=== PATIENT | male | born 1980 | race Caucasian/White ===

== ENCOUNTER 2022-09-12 06:15 | Observation (INO) | payer BC, SELFPAY ==
--- NOTE | ~2022-09-12 | FL_ITS ---
EXAMINATION: XR FLUOROSCOPY WITH IMAGES CLINICAL INFORMATION: Right ureteral calculus COMPARISON: CT dated 09/12/2022 TECHNIQUE: Fluoroscopy Supervised By: Dr. Dominick Wills. Fluoroscopy Time: 22.1 seconds. Cumulative Dose: 5.29 mGy. Images: 3. FL/FL guidance in OR FINDINGS/IMPRESSION: Images demonstrate placement of a right ureteral stent. Please see operative report.
--- NOTE | ~2022-09-12 | CT_ITS ---
EXAMINATION: CT ABDOMEN AND PELVIS WITHOUT CONTRAST CLINICAL INFORMATION: RLQ Pain COMPARISON: None TECHNIQUE: Multidetector volumetric imaging was performed from the superior aspect of the liver through the pubic symphysis. Sagittal and coronal reformatted images were obtained on the technologist's workstation. This CT examination was performed using dose optimization techniques as appropriate, variously including the following: *Automated exposure control *Adjustment of mA and/or kV according to patient size (this includes techniques or standardized protocols for targeted exams where dose is matched to indication/reason for exam; i.e. extremities or head) *Use of iterative reconstruction technique DLP: 410 mGy-cm FINDINGS: LUNG BASES: The visualized lung bases are unremarkable. LIVER, GALLBLADDER, AND BILIARY TREE: The liver is normal in size, shape, and attenuation. No focal hepatic lesion or biliary ductal dilatation is present. The gallbladder is unremarkable with no evidence of radiopaque gallstones, gallbladder wall thickening, or obvious pericholecystic inflammatory changes. PANCREAS: Unremarkable. SPLEEN: Unremarkable. ADRENAL GLANDS: Unremarkable. KIDNEYS AND URETERS: The kidneys are normal in size, shape, and attenuation. Within the right proximal ureter at the level of the superior endplate of L4, there is a calculus measuring 3 x 2 x 5 mm which produces moderate right hydronephrosis there is surrounding periureteral fat stranding. No additional renal or ureteral calculi. This calculus has an attenuation value of 875 Hounsfield units, though this is likely falsely depressed due to volume averaging. BLADDER: Unremarkable. GASTROINTESTINAL TRACT: Stomach, small bowel, and colon are normal in caliber. No bowel wall thickening or surrounding inflammatory changes. Appendix is normal. No intraperitoneal free fluid or free air. ABDOMINAL WALL: No significant hernia is appreciated. LYMPH NODES: Normal. VASCULAR: Celiac axis appears dilated to 1.4 cm, potentially due to poststenotic dilatation from the navicular ligament compression. This region is not well assessed given the absence of intravenous contrast. Abdominal aorta is normal in caliber. PELVIC VISCERA: The prostate and seminal vesicles are unremarkable. OSSEOUS STRUCTURES: No acute osseous findings. Chronic Schmorl's nodes are evident at T10, T11, and T12 with slight chronic-appearing anterior wedging of the T10 and T12 vertebral bodies. CT/CT abdomen pelvis wo IV con IMPRESSION: A 5 mm calculus in the right proximal ureter produces moderate right hydronephrosis. Fleischner guidelines were followed.
[2022-09-12 06:29] VITALS: BP 141/62; PULSE 73; RESP 40; TEMP 36.4; O2SAT 100; BMI 22.2
[2022-09-12 06:43] LABS: MANUAL DIFF FLAG NO
[2022-09-12 06:44] LABS: Basophils Percent Auto 0.4 % (0-2); Eosinophils Absolute Auto 0.1 X10*3/uL (0.0-0.4); Eosinophils Percent Auto 1.2 % (0-4); Hematocrit 41.9 % (42.0-52.0); Imm Gran Abs Auto 0.02 X10*3/uL (0.00-0.03); Imm Gran Pct Auto 0.4 % (0.0-0.4); Lymphocytes Absolute Auto 2.4 X10*3/uL (1.2-4.9); Lymphocytes Percent Auto 41.8 % (20-40); Mean Corpuscular HGB Conc 35.8 g/dl (31.0-36.0); Mean Corpuscular Hemoglobin 31.8 pg (27.0-33.0); Mean Platelet Volume 9.1 fL (9.4-12.4); Monocytes Absolute Auto 0.5 X10*3/uL (0.1-1.2); Neutrophils Absolute Auto 2.7 x10*3/uL (2.0-8.3); Neutrophils Percent Auto 48.2 % (45-73); Platelet Count 196 X10*3/uL (160-400); Red Blood Count 4.71 X10*6/uL (4.60-5.80); White Blood Count 5.6 X10*3/uL (4.8-10.8)
[2022-09-12] MEDS: Ketorolac Tromethamine 30 MG/ML VIAL 15 MG IVPUSH (06:50)
[2022-09-12] MEDS: 0.9 % Sodium Chloride 1,000 ML 999 ML IV ×2 (06:52→07:43)
[2022-09-12 06:59] LABS: Alanine Aminotransferase 24 U/L (0-40); Albumin Level 4.4 g/dL (3.5-5.0); Alkaline Phosphatase 88 U/L (39-117); Anion Gap 20 (12-20); Aspartate Amino Transferase 21 U/L (5-37); Bilirubin Total 0.8 mg/dL (0.0-1.0); Blood Urea Nitrogen 14 mg/dL (9-16); Calcium 9.5 mg/dL (8.4-10.2); Carbon Dioxide 18 mmol/L (22-29); Chloride 105 mmol/L (96-108); Creatinine Clr Calc Pharmacy 86.9; Estimated Glomerular Filt Rate > 60; Glucose Random 148 mg/dL (60-115); Lipase 15 U/L (8-78); Potassium 3.5 mmol/L (3.3-5.1); Sodium 139 mmol/L (135-145)
[2022-09-12 07:20] LABS: Appearance Urine Turbid; Color Urine Yellow; Glucose Urine UA Negative (Negative); Leukocyte Esterase Urine Trace (Negative); Nitrite Urine Negative (Negative); PH 8.5 (5.0-9.0); Specific Gravity - Urine 1.025 (1.005-1.025); UMIC TRIGGER UACC YES; Urine Blood Large (3+) (Negative); Urine Ketones 15 mg/dL (Negative); Urine Protein 30 (1+) mg/dL (Neg-Trace)
--- NOTE | 2022-09-12 07:23 | ED_ITS ---
HPI - Abdominal Pain General Chief Complaint: Abdominal Pain Stated Complaint: Abdominal Pain Time Seen by Provider: 09/12/22 06:40 Source: patient and family Mode of arrival: ambulatory Limitations: no limitations History of Present Illness HPI narrative: 42 year old male presents to the ED after waking up from sleep with RLQ pain and flank pain. He denies dysuria or frequency. He states he did not urinate his n ormal amount. He denies fever chills cough has some nausea with no vomiting. He his appendix has never had a kidney stone. MD elicited complaint: flank pain Related Data Allergies Allergy/AdvReac Type Severity Reaction Status Date / Time No Known Allergies Allergy Verified 09/12/22 06:28 Review of Systems Review of Systems Review of systems: General: Patient denies any fever chills recent illness or falls Musculoskeletal: Denies back pain or body aches or other injuries HEENT: denies headache, runny nose, ear pain Respiratory: denies shortness of breath, cough Cardiovascular: no chest pain or palpitations : denies dysuria, frequency Abdomen: no nausea vomiting rlq abdominal pain Extremities: no swelling, no pain Skin: no diaphoresis Yes all other systems are reviewed and are negative PMFSH Social History Social History Advance Directives: No Advance Directives Information Provided: Yes Physical Exam ED Vital Signs: Vital Signs - 24 hr 09/12/22 06:29 09/12/22 07:29 Temperature 97.5 F Pulse Rate 73 Respiratory Rate 40 H 16 Blood Pressure 141/62 H Pulse Oximetry 100 Oxygen Delivery Method Room Air BMI result Body Mass Index 22.2 General: Well-appearing well-nourished in no signs of distress HEENT: Normocephalic atraumatic Neck: No signs of JVD, no masses no tenderness or lymphadenopathy Cardiovascular: Regular rate and rhythm Respiratory: Clear to auscultation bilaterally Abdomen: Soft RLQ tenderness no masses no CVA tenderness Extremities: Normal pedal pulses no signs of edema Skin: Dry warm no rashes Back: No tenderness full ROM Medical Decision Making Medical Decision Making MDM Narrative: Patient sent for CT which shows a 5 mm kidney stone which patient her head or labs otherwise look normal patient has been unable to give us urine sample this point patient is still in severe pain states he has 710 pain still give patient some morphine and reassess. 0741 Patient does have 20 + RBC with 10-20 WBC's on his urinalysis concern for UTI. I will consult Dr. Wills about admission and review of note. Differential Diagnosis Differential Diagnoses: The differential diagnosis associated with the presentation includes Appendicitis versus kidney stone versus diverticulitis Admission/Observation Consideration of admission/observation: Escalation of care including admission/observation considered Consult Healthcare Provider Management of the patient was discussed with: Hospitalist and Motorcycle Subassembler Dr. Wills about concern for infected kidney stone vs response to blood in urine he agrees it is an infected kidney stone and recommends admission IV antibiotics will watch today for possible procedure tomorrow. I spoke with Dr. Glass who agreed with the admission. Lab Data MDM Lab Attestation statement: I reviewed the patient's lab results. 09/12/22 06:39 09/12/22 06:39 Labs: Lab Results 09/12/22 09/12/22 09/12/22 Range/Units 06:39 06:39 07:09 WBC 5.6 (4.8-10.8) X10*3/uL RBC 4.71 (4.60-5.80) X10*6/uL Hgb 15.0 (14.0-18.0) g/dl Hct 41.9 L (42.0-52.0) % MCV 89.0 (80.0-98.0) fL MCH 31.8 (27.0-33.0) pg MCHC 35.8 (31.0-36.0) g/dl RDW 11.0 (11.0-16.0) % Plt Count 196 (160-400) X10*3/uL MPV 9.1 L (9.4-12.4) fL Immature Gran % (Auto) 0.4 (0.0-0.4) % Neut % (Auto) 48.2 (45-73) % Lymph % (Auto) 41.8 H (20-40) % [place] % (Auto) 8.0 (2-11) % Eos % (Auto) 1.2 (0-4) % Baso % (Auto) 0.4 (0-2) % Lymph # (Auto) 2.4 (1.2-4.9) X10*3/uL [place] # (Auto) 0.5 (0.1-1.2) X10*3/uL Eos # (Auto) 0.1 (0.0-0.4) X10*3/uL Baso # (Auto) 0.0 (0.0-0.2) X10*3/uL Abs Immat Gran (auto) 0.02 (0.00-0.03) X10*3/uL Absolute Neuts (auto) 2.7 (2.0-8.3) x10*3/uL Absolute Nucleated RBC 0.000 (0.0-0.012) X10*3/uL Nucleated RBC % (auto) 0.0 (0.0-0.2) /100WBC Sodium 139 (135-145) mmol/L Potassium 3.5 (3.3-5.1) mmol/L Chloride 105 (96-108) mmol/L Carbon Dioxide 18 L (22-29) mmol/L Anion Gap 20 (12-20) BUN 14 (9-16) mg/dL Creatinine 1.10 (0.5-1.4) mg/dL Estim Creat Clear Calc 86.9 Estimated GFR > 60 Random Glucose 148 H (60-115) mg/dL Calcium 9.5 (8.4-10.2) mg/dL Total Bilirubin 0.8 (0.0-1.0) mg/dL AST 21 (5-37) U/L ALT 24 (0-40) U/L Alkaline Phosphatase 88 (39-117) U/L Total Protein 7.0 (6.5-8.0) g/dL Albumin 4.4 (3.5-5.0) g/dL Lipase 15 (8-78) U/L Urine Color Yellow Urine Appearance Turbid Urine pH 8.5 (5.0-9.0) Ur Specific [place] 1.025 (1.005-1.025) Urine Protein 30 (1+) H (Neg-Trace) mg/dL Urine Glucose (UA) Negative (Negative) mg/dL Urine Ketones 15 (Negative) mg/dL Urine Blood Large (3+) H (Negative) Urine Nitrite Negative (Negative) Ur Leukocyte Esterase Trace H (Negative) Urine RBC >20 H (0-2) /HPF Urine WBC 11-20 H (0-5) /HPF Ur Squamous Epith Cells 0-2 (0-2) /HPF Urine Bacteria None Seen (None Seen) Hyaline Casts 3-5 (0-2) /LPF Independent Interpretation I performed an independent interpretation of an: CT Scan Radiology Impression Discussion of test interpretation with radiology: I have reviewed the radiologist's reading. Independent Historian Clinical information obtained from an independent historian. History obtained from or confirmed by: Parent External Record Review External record reviewed: Inpatient record and Outpatient record Prescription Management I considered prescription management with: Pain Medication Medications Administered Generic Name Dose Route Start Last Admin Trade Name Freq PRN Reason Stop Dose Admin Sodium Chloride 1,000 mls @ 999 mls/hr 09/12/22 07:30 09/12/22 07:43 Ns IV 09/12/22 08:30 999 mls/hr .Q1H1M TIANA Administration Discontinued Medications Generic Name Dose Route Start Last Admin Trade Name Freq PRN Reason Stop Dose Admin Diphenhydramine HCl 25 mg 09/12/22 07:22 09/12/22 07:29 Diphenhydramine Hcl 50 Mg/Ml Vial IVPUSH 09/12/22 07:23 25 mg ONCE ONE Administration Sodium Chloride 1,000 mls @ 999 mls/hr 09/12/22 06:30 09/12/22 06:52 Ns IV 09/12/22 07:30 999 mls/hr .Q1H1M TIANA Administration Ketorolac Tromethamine 15 mg 09/12/22 06:30 09/12/22 06:50 Ketorolac Tromethamine 30 Mg/Ml Vial IVPUSH 09/12/22 06:31 15 mg ONCE ONE Administration Metoclopramide HCl 10 mg 09/12/22 07:22 09/12/22 07:29 Metoclopramide Hcl 10 Mg/2 Ml Vial IVPUSH 09/12/22 07:23 10 mg ONCE ONE Administration Morphine Sulfate 4 mg 09/12/22 07:22 09/12/22 07:29 Morphine Sulfate 4 Mg/Ml Cartridge IVPUSH 09/12/22 07:23 4 mg ONCE ONE Administration Protocol Discharge Plan Discharge Clinical Impression: Calculus of kidney, Urinary tract infection Patient Disposition: Admitted As Inpatient Instructions: Kidney Stones (ED), Hydronephrosis (ED) Referrals: Dominick Wills MD [Physician] - (Please call to follow up for your kidney stone. If you have any other concerns please return to the ED.)
[2022-09-12 07:25] LABS: Bacteria Urine None Seen (None Seen); RBC Urine >20 /HPF (0-2); Squamous Epithelial Cell Urine 0-2 /HPF (0-2); UACC Culture Trigger YES
[2022-09-12 07:29] VITALS: RESP 16
[2022-09-12] MEDS: diphenhydrAMINE HCL 50 MG/ML VIAL 25 MG IVPUSH (07:29)
[2022-09-12] MEDS: Morphine Sulfate 4 MG/ML CARTRIDGE IVPUSH (07:29)
[2022-09-12] MEDS: Metoclopramide HCl 10 MG/2 ML VIAL IVPUSH (07:29)
[2022-09-12] MEDS: cefTRIAXone sodium 1 GM in 0.9 % Sodium Chloride 50 ML IV (07:50)
[2022-09-12] MEDS: Ketorolac Tromethamine 15 MG/ML VIAL IVPUSH (07:57)
[2022-09-12 08:27] LABS: COVID-19 Test Negative (Negative); IDNOW Serial# 16C4AD1C
--- NOTE | 2022-09-12 09:01 | P.HPHOSP_ITS ---
History of Present Illness Date of Service: 09/12/22 Chief Complaint: right flank pain 42M PMH migraines and epilepsy presented with right flank pain. pain started am of admission around 5am, 10/10 right flank, radiating to RLQ abdomen, no previous stones, father has had mutliplr calcium oxalate stones. in ED ct showed A 5 mm calculus in the right proximal ureter produces moderate right hydronephrosis. Review of Systems Review of Systems: Yes all other systems are reviewed and are negative [facility] Medical History (Updated 09/12/22 @ 09:02 by Bjorn Glass MD) Epilepsy Migraine Family History (Updated 09/12/22 @ 09:03 by Bjorn Glass MD) Father Nephrolithiasis Social History Alcohol intake: never Smoked in Last 30 Days: No Use of substances other than those prescribed or required for medical reasons: No Advance Directives: No Advance Directives Information Provided: Yes Meds Allergies Allergy/AdvReac Type Severity Reaction Status Date / Time No Known Allergies Allergy Verified 09/12/22 06:28 Active Medications: Current Medications Hydromorphone HCl (Hydromorphone Hcl 0.5 Mg/0.5 Ml Syringe) 0.5 mg IVPUSH Q4H PRN; Protocol PRN Reason: moderate pain Sodium Chloride (Ns) 1,000 mls @ 100 mls/hr IVCONT .Q10H [facility] Lamotrigine (Lamotrigine 100 Mg Tablet) 200 mg PO BID [facility] Pharmacy Consult (Consult Rx Perform Med Rec) 1 each MISCELLANE ONCE PRN PRN Reason: Consult order Sodium Chloride (0.9 % Sodium Chloride Flush 3 Ml Syringe) 3 ml IVFLUSH QSHIFT [facility] Tamsulosin HCl (Tamsulosin Hcl 0.4 Mg Capsule) 0.4 mg PO DAILY [facility] Home Medications Medication Instructions Recorded Confirmed Last Taken Type lamotrigine 200 mg tablet 1 tab PO BID 09/12/22 09/12/22 Unknown History Physical Exam Vital Signs and Narrative: Vital Signs: Last Vital Signs Temp 97.5 F 09/12/22 06:29 Pulse 73 09/12/22 06:29 Resp 16 09/12/22 07:29 BP 141/62 H 09/12/22 06:29 Pulse Ox 100 09/12/22 06:29 O2 Del Method 09/12/22 06:29 BMI result Body Mass Index 22.2 General: AO X 3, no acute distress Resp: CTA bilateral, no accessory muscles used CVS: S1,S2,RRR GI: soft, non tender, non distended Neuro: motor grossly intact, alert Psych: appropriate affect, appropriate insight Results Labs 09/12/22 06:39 09/12/22 06:39 Labs: Laboratory Results - last 24 hr 09/12/22 09/12/22 09/12/22 06:39 06:39 07:09 MCV 89.0 MCH 31.8 MCHC 35.8 RDW 11.0 Plt Count 196 MPV 9.1 L Immature Gran % (Auto) 0.4 Neut % (Auto) 48.2 Lymph % (Auto) 41.8 H [place] % (Auto) 8.0 Eos % (Auto) 1.2 Baso % (Auto) 0.4 Lymph # (Auto) 2.4 [place] # (Auto) 0.5 Eos # (Auto) 0.1 Baso # (Auto) 0.0 Abs Immat Gran (auto) 0.02 Absolute Neuts (auto) 2.7 Absolute Nucleated RBC 0.000 Nucleated RBC % (auto) 0.0 Anion Gap 20 Estim Creat Clear Calc 86.9 Estimated GFR > 60 Random Glucose 148 H Calcium 9.5 Total Bilirubin 0.8 AST 21 ALT 24 Alkaline Phosphatase 88 Total Protein 7.0 Albumin 4.4 Lipase 15 Urine Color Yellow Urine Appearance Turbid Urine pH 8.5 Ur Specific [place] 1.025 Urine Protein 30 (1+) H Urine Glucose (UA) Negative Urine Ketones 15 Urine Blood Large (3+) H Urine Nitrite Negative Ur Leukocyte Esterase Trace H Urine RBC >20 H Urine WBC 11-20 H Ur Squamous Epith Cells 0-2 Urine Bacteria None Seen Hyaline Casts 3-5 COVID-19 (TERY) COVID-19 Clin Com 09/12/22 08:09 MCV MCH MCHC RDW Plt Count MPV Immature Gran % (Auto) Neut % (Auto) Lymph % (Auto) [place] % (Auto) Eos % (Auto) Baso % (Auto) Lymph # (Auto) [place] # (Auto) Eos # (Auto) Baso # (Auto) Abs Immat Gran (auto) Absolute Neuts (auto) Absolute Nucleated RBC Nucleated RBC % (auto) Anion Gap Estim Creat Clear Calc Estimated GFR Random Glucose Calcium Total Bilirubin AST ALT Alkaline Phosphatase Total Protein Albumin Lipase Urine Color Urine Appearance Urine pH Ur Specific [place] Urine Protein Urine Glucose (UA) Urine Ketones Urine Blood Urine Nitrite Ur Leukocyte Esterase Urine RBC Urine WBC Ur Squamous Epith Cells Urine Bacteria Hyaline Casts COVID-19 (TREY) Negative COVID-19 Clin Com See Note Imaging Radiologist's Impressions: Impressions Abdomen/Pelvis CT 09/12/22 06:50 IMPRESSION: A 5 mm calculus in the right proximal ureter produces moderate right hydronephrosis. Fleischner guidelines were followed. Assessment and Plan (1) Calculus of kidney: Status: Acute Plan 42M PMH migraine and epilepsy presented with right flank pain, found to have obstructing right ureteral stone obstructing right ureteral stone ivf, pain control, flomax, gu eval npo after midnight for possible intervention epilepsy lamictal full code Time Spent With Patient Time: Total time managing care of this patient today ____ minutes. Quality Stroke Does the patient have a stroke diagnosis?: No VTE Prior VTE?: No VTE Risk Level:: Medical - low VTE Device Contraindication: Treatment Not Indicated VTE Drug Contraindication: Treatment Not Indicated
--- NOTE | 2022-09-12 09:12 | PHA.MEDREC ---
Pharmacy Consult ? Medication Reconciliation Pharmacy has completed the medication reconciliation. CHECKED MED REC DONE OVERNIGHT
[2022-09-12] MEDS: Tamsulosin HCL 0.4 MG CAPSULE PO (09:51)
[2022-09-12] MEDS: lamoTRIgine 100 MG TABLET 200 MG PO ×2 (09:52→21:44)
[2022-09-12 10:00] VITALS: BMI 28.5
[2022-09-12] MEDS: 0.9 % Sodium Chloride 1,000 ML 100 ML IVCONT ×2 (10:03→20:20)
[2022-09-12 10:42] VITALS: RESP 16
[2022-09-12] MEDS: HYDROmorphone HCl 0.5 MG/0.5 ML SYRINGE IVPUSH ×3 (10:42→23:52)
[2022-09-12 14:13] VITALS: BP 126/80; PULSE 65; RESP 20; TEMP 36.6; O2SAT 99
[2022-09-12] MEDS: ondansetron HCL 4 MG/2 ML VIAL IVPUSH (20:21)
[2022-09-12 22:35] VITALS: BP 116/71; PULSE 66; RESP 19; TEMP 36.9; O2SAT 98
[2022-09-12 23:27] VITALS: BP 123/71; PULSE 70; RESP 17; O2SAT 96
--- NOTE | 2022-09-12 23:55 | PC.NURSE ---
Pt aox4. Reports righ flank pain, 02/14. Pt medicated as ordered. Tolerated well. Will continue to monitor.
[2022-09-13] VITALS (12 sets, daily range): BP systolic 113–140; BP diastolic 63–77; PULSE 66–81; RESP 16–19; TEMP 36.6–37.6; O2SAT 96–100; BMI 22.9
[2022-09-13 02:54] LABS: Hematocrit 37.2 % (42.0-52.0); Hemoglobin 13.2 g/dl (14.0-18.0); Mean Corpuscular HGB Conc 35.5 g/dl (31.0-36.0); Mean Corpuscular Volume 90.3 fL (80.0-98.0); Mean Platelet Volume 9.1 fL (9.4-12.4); Platelet Count 139 X10*3/uL (160-400); Red Blood Count 4.12 X10*6/uL (4.60-5.80); White Blood Count 8.6 X10*3/uL (4.8-10.8)
--- NOTE | 2022-09-13 04:01 | PC.NURSE ---
Pt sleeping at the bedside in no apparent distress. Breaths are even and unlabored with equal chest rises. Will continue to monitor.
[2022-09-13 05:05] LABS: Anion Gap 13 (12-20); Blood Urea Nitrogen 12 mg/dL (9-16); Calcium 8.3 mg/dL (8.4-10.2); Carbon Dioxide 23 mmol/L (22-29); Chloride 105 mmol/L (96-108); Creatinine Clr Calc Pharmacy 77.8; Estimated Glomerular Filt Rate > 60; Glucose Fasting 104 mg/dL (60-99); Potassium 3.9 mmol/L (3.3-5.1); Sodium 137 mmol/L (135-145)
[2022-09-13] MEDS: 0.9 % Sodium Chloride 1,000 ML 100 ML IVCONT ×2 (05:14→18:12)
[2022-09-13] MEDS: HYDROmorphone HCl 0.5 MG/0.5 ML SYRINGE IVPUSH ×3 (06:02→18:10)
[2022-09-13] MEDS: lamoTRIgine 100 MG TABLET 200 MG PO ×2 (08:24→20:25)
[2022-09-13] MEDS: Tamsulosin HCL 0.4 MG CAPSULE PO (08:24)
[2022-09-13] MEDS: 0.9 % Sodium Chloride Flush 3 ML SYRINGE IVFLUSH (08:25)
--- NOTE | 2022-09-13 09:50 | P.CNUR_ITS ---
History of Present Illness Consult details Consult date: 09/13/22 Narrative: CC: right mid ureteric stone 42-year-old male presented with right flank pain of approximately 12 hours duration. Pain 10/10 radiating to right lower quadrant No relieving or aggravating factors Strong family history over renal stones Imaging - CT 5 mm proximal, mid right ureteric stone with mild right h ydroureteronephrosis WBC 8.6, creatinine 1.2, calcium 8.3 recommend intervention Review of Systems Constitutional: Constitutional: Reports as per HPI and Reports no additional constitutional complaints Cardiovascular: Cardiovascular: Reports as per HPI and Reports no additional cardiovascular complaints Respiratory: Respiratory: Reports as per HPI and Reports no additional respiratory complaints Gastrointestinal: Gastrointestinal: Reports as per HPI and Reports no additional gastrointestinal complaints Genitourinary: Genitourinary: Reports as per HPI Musculoskeletal: Musculoskeletal: Reports no additional musculoskeletal complaints and Reports as per HPI Neurologic: Reports system reviewed and no additional complaints, except as documented and Reports as per HPI PMFSH Past Medical History Medical History (Updated 09/12/22 @ 09:02 by Bjorn Glass MD) Epilepsy Migraine Family History Family History (Updated 09/12/22 @ 09:03 by Bjorn Glass MD) Father Nephrolithiasis Social History Social History Alcohol intake: never Patient Tobacco Use Status: Never used Tobacco Meds Allergies Allergy/AdvReac Type Severity Reaction Status Date / Time No Known Allergies Allergy Verified 09/12/22 06:28 Active Medications: Current Medications Hydromorphone HCl (Hydromorphone Hcl 0.5 Mg/0.5 Ml Syringe) 0.5 mg IVPUSH Q4H PRN; Protocol PRN Reason: moderate pain Last Admin: 09/13/22 06:02 Dose: 0.5 mg Sodium Chloride (Ns) 1,000 mls @ 100 mls/hr IVCONT .Q10H [facility] Last Admin: 09/13/22 05:14 Dose: 100 mls/hr Lamotrigine (Lamotrigine 100 Mg Tablet) 200 mg PO BID [facility] Last Admin: 09/13/22 08:24 Dose: 200 mg Ondansetron HCl (Ondansetron Hcl 4 Mg/2 Ml Vial) 4 mg IVPUSH Q6H PRN PRN Reason: Nausea and Vomiting Last Admin: 09/12/22 20:21 Dose: 4 mg Pharmacy Consult (Consult Rx Perform Med Rec) 1 each MISCELLANE ONCE PRN PRN Reason: Consult order Sodium Chloride (0.9 % Sodium Chloride Flush 3 Ml Syringe) 3 ml IVFLUSH QSHIFT [facility] Last Admin: 09/13/22 08:25 Dose: 3 ml Tamsulosin HCl (Tamsulosin Hcl 0.4 Mg Capsule) 0.4 mg PO DAILY [facility] Last Admin: 09/13/22 08:24 Dose: 0.4 mg Home Medications Medication Instructions Recorded Confirmed Last Taken Type lamotrigine 200 mg tablet 1 tab PO BID 09/12/22 09/12/22 Unknown History Physical Exam Vital Signs: Vital Signs: Last Vital Signs Temp 98.4 F 09/12/22 22:35 Pulse 70 09/12/22 23:27 Resp 17 09/12/22 23:27 BP 123/71 09/12/22 23:27 Pulse Ox 96 09/12/22 23:27 O2 Del Method 09/12/22 23:27 BMI result Body Mass Index 22.2 Const: General: cooperative, healthy appearing, comfortable and no acute distress Orientation/consciousness: patient oriented x3 HEENT: Face and sinus: Yes normal facial exam Mouth: moist mucous membranes Neck: Neck: Yes normal visual inspection, Yes full ROM and Yes trachea midline Chest: Chest palpation & inspection: normal inspection of the chest Resp: Effort & Inspection: normal respiratory effort, able to speak in co mplete sentences and no respiratory distress GI: Inspection: Yes normal to inspection Back/Spine/Pelvis: Cervical Spine: normal cervical lordosis Thoracic/Lumbar Spine: thoracic and lumbar spine normal to inspection Skin: General skin exam: no rashes or lesions noted Neuro: General: patient oriented x3, tone normal and moves all extremities Extrem: General: Yes normal to inspection and Yes capillary refill normal Results Labs 09/13/22 02:41 09/13/22 04:29 Labs: Abnormal lab results 09/13/22 09/13/22 Range/Units 02:41 04:29 RBC 4.12 L (4.60-5.80) X10*6/uL Hgb 13.2 L (14.0-18.0) g/dl Hct 37.2 L (42.0-52.0) % Plt Count 139 L D (160-400) X10*3/uL MPV 9.1 L (9.4-12.4) fL Fasting Glucose 104 H (60-99) mg/dL Calcium 8.3 L D (8.4-10.2) mg/dL Short CBC 09/13/22 Range/Units 02:41 WBC 8.6 (4.8-10.8) X10*3/uL Hgb 13.2 L (14.0-18.0) g/dl Hct 37.2 L (42.0-52.0) % Plt Count 139 L D (160-400) X10*3/uL BMP 09/13/22 04:29 Sodium 137 Potassium 3.9 Chloride 105 Carbon Dioxide 23 BUN 12 Creatinine 1.23 Calcium 8.3 L D Urine 09/12/22 Range/Units 07:09 Urine Color Yellow Urine Appearance Turbid Urine pH 8.5 (5.0-9.0) Ur Specific [place] 1.025 (1.005-1.025) Urine Protein 30 (1+) H (Neg-Trace) mg/dL Urine Glucose (UA) Negative (Negative) mg/dL All other labs normal. Assessment and Plan (1) Calculus of kidney: Status: Acute Plan Ureteroscopy We discussed the nature of the decision and reasonable alternatives for performing ureteroscopy. Options such as medical therapy were discussed. Interventions include chemical dissolution, ESWL, ureteroscopy with laser lithotripsy and stent placement, PCNL. The relative uncertainties and benefits related to each alternate procedure were adequately discussed. General surgical risks including, but not limited to - pain, bleeding, infection, myocardial infarction, pulmonary embolus, deep vein thrombosis and cerebrovascular accident which may result in further hospitalization were discussed. Full disclosure of the procedure as well as all major risks, benefits and complications were discussed including but not limited to damage to the urethra, bladder and kidney infection, damage to the ureter, stent migration or malpo sition, scarring to the renal pelvis, remnant stone fragments, subsequent stone passage with need for secondary procedures. The overall secondary procedure rate is approximately 10-15%. The overall clearance rate is approximately 90-95%. Success of the procedure in the short-term does not necessarily guarantee that long-term success will be maintained. Suitable follow up will need to be maintained. The patient showed understanding of discussion and wishes to proceed with - cystoscopy, retrograde, ureteroscopy, possible lithotripsy/stone basketing and stent on the right side Time Spent With Patient Time: Total time managing care of this patient today ____ minutes. Procedures Date of Service Date of Service: 09/13/22
[2022-09-13] MEDS: ondansetron HCL 4 MG/2 ML VIAL IVPUSH (10:04)
--- NOTE | 2022-09-13 13:32 | MHC.CM.PN ---
CM met with Patient at bedside and addressed CRUZ with him (original was given to Patient and a copy has been placed on the chart). Patient lives in a house with his and 2 children, ages 7 and 10 years of age and he is functionally independent and working. Patient has received Moderna/covid vax x3 and the PCP is Dr. Josephine Wing.
--- NOTE | 2022-09-13 15:55 | P.CONAN_ITS ---
HPI - Anesthesia Eval Consult details Narrative: 42 M for cystoscopy last seizure 2018 [facility] Active Problems Active Problems: All Active Problems (Updated 09/12/22 @ 09:02 by Bjorn Glass MD) Migraine (Acute) Epilepsy (Acute) Calculus of kidney (Acute) Urinary tract infection (Acute) Past Medical History Medical History (Updated 09/12/22 @ 09:02 by Bjorn Glass MD) Epilepsy Migraine Functional capacity: independent ambulation Family History Family History (Updated 09/12/22 @ 09:03 by Bjorn Glass MD) Father Nephrolithiasis Family history of problems with anesthesia: No Surgical History History of Problems with Anesthesia: No Social History Social History Household Members: Spouse and Children Housing: House Do you presently have visiting nurse or other home services: No Alcohol intake: never Patient Tobacco Use Status: Never used Tobacco service: No Current occupational status: employed Meds Allergies Allergy/AdvReac Type Severity Reaction Status Date / Time No Known Allergies Allergy Verified 09/12/22 06:28 Active Medications: Current Medications Hydromorphone HCl (Hydromorphone Hcl 0.5 Mg/0.5 Ml Syringe) 0.5 mg IVPUSH Q4H PRN; Protocol PRN Reason: moderate pain Last Admin: 09/13/22 11:13 Dose: 0.5 mg Sodium Chloride (Ns) 1,000 mls @ 100 mls/hr IVCONT .Q10H [facility] Last Admin: 09/13/22 05:14 Dose: 100 mls/hr Lamotrigine (Lamotrigine 100 Mg Tablet) 200 mg PO BID [facility] Last Admin: 09/13/22 08:24 Dose: 200 mg Ondansetron HCl (Ondansetron Hcl 4 Mg/2 Ml Vial) 4 mg IVPUSH Q6H PRN PRN Reason: Nausea and Vomiting Last Admin: 09/13/22 10:04 Dose: 4 mg Pharmacy Consult (Consult Rx Perform Med Rec) 1 each MISCELLANE ONCE PRN PRN Reason: Consult order Sodium Chloride (0.9 % Sodium Chloride Flush 3 Ml Syringe) 3 ml IVFLUSH QSHIFT [facility] Last Admin: 09/13/22 08:25 Dose: 3 ml Tamsulosin HCl (Tamsulosin Hcl 0.4 Mg Capsule) 0.4 mg PO DAILY [facility] Last Admin: 09/13/22 08:24 Dose: 0.4 mg Home Medications Medication Instructions Recorded Confirmed Last Taken Type lamotrigine 200 mg tablet 1 tab PO BID 09/12/22 09/12/22 Unknown History Exam Exam Date and Time: September 13, 2022 1555 Height,Weight and Vital Signs: Height 5 ft 10 in Weight 90.2 kg Last Vital Signs Temp 98.3 F 09/13/22 14:28 Pulse 75 09/13/22 14:28 Resp 18 09/13/22 14:28 BP 133/69 09/13/22 14:28 Pulse Ox 98 09/13/22 14:28 O2 Del Method 09/13/22 14:28 Pertinent Lab Results Pertinent Lab Results: Laboratory Tests 09/12/22 09/12/22 09/12/22 06:39 06:39 07:09 WBC 5.6 RBC 4.71 Hgb 15.0 Hct 41.9 L MCV 89.0 MCH 31.8 MCHC 35.8 RDW 11.0 Plt Count 196 MPV 9.1 L Immature Gran % (Auto) 0.4 Neut % (Auto) 48.2 Lymph % (Auto) 41.8 H [place] % (Auto) 8.0 Eos % (Auto) 1.2 Baso % (Auto) 0.4 Lymph # (Auto) 2.4 [place] # (Auto) 0.5 Eos # (Auto) 0.1 Baso # (Auto) 0.0 Abs Immat Gran (auto) 0.02 Absolute Neuts (auto) 2.7 Absolute Nucleated RBC 0.000 Nucleated RBC % (auto) 0.0 Sodium 139 Potassium 3.5 Chloride 105 Carbon Dioxide 18 L Anion Gap 20 BUN 14 Creatinine 1.10 Estim Creat Clear Calc 86.9 Estimated GFR > 60 Random Glucose 148 H Fasting Glucose Calcium 9.5 Total Bilirubin 0.8 AST 21 ALT 24 Alkaline Phosphatase 88 Total Protein 7.0 Albumin 4.4 Lipase 15 Urine Color Yellow Urine Appearance Turbid Urine pH 8.5 Ur Specific [place] 1.025 Urine Protein 30 (1+) H Urine Glucose (UA) Negative Urine Ketones 15 Urine Blood Large (3+) H Urine Nitrite Negative Ur Leukocyte Esterase Trace H Urine RBC >20 H Urine WBC 11-20 H Ur Squamous Epith Cells 0-2 Urine Bacteria None Seen Hyaline Casts 3-5 COVID-19 ([facility]) COVID-19 Clin Com 09/12/22 09/13/2223 08:09 02:41 04:29 WBC 8.6 RBC 4.12 L Hgb 13.2 L Hct 37.2 L MCV 90.3 MCH 32.0 MCHC 35.5 RDW 11.0 Plt Count 139 L D MPV 9.1 L Immature Gran % (Auto) Neut % (Auto) Lymph % (Auto) [place] % (Auto) Eos % (Auto) Baso % (Auto) Lymph # (Auto) [place] # (Auto) Eos # (Auto) Baso # (Auto) Abs Immat Gran (auto) Absolute Neuts (auto) Absolute Nucleated RBC 0.000 Nucleated RBC % (auto) 0.0 Sodium 137 Potassium 3.9 Chloride 105 Carbon Dioxide 23 Anion Gap 13 BUN 12 Creatinine 1.23 Estim Creat Clear Calc 77.8 Estimated GFR > 60 Random Glucose Fasting Glucose 104 H Calcium 8.3 L D Total Bilirubin AST ALT Alkaline Phosphatase Total Protein Albumin Lipase Urine Color Urine Appearance Urine pH Ur Specific [place] Urine Protein Urine Glucose (UA) Urine Ketones Urine Blood Urine Nitrite Ur Leukocyte Esterase Urine RBC Urine WBC Ur Squamous Epith Cells Urine Bacteria Hyaline Casts COVID-19 ([facility]) Negative COVID-19 Clin Com See Note Airway Mallampati Class: III TM Dist: >3cm Neck ROM: Full Loose/Missing/Broken Teeth: Yes Heart: S1,S2 Lungs: b/l breath sounds Assessment and Plan Assessment Anesthesia Assessment: Anesthesia Plan Discussed and Chart Reviewed Final Anesthetic Review Family History of Problems with Anesthesia: No History of Problems with Anesthesia: No NPO: Yes ASA Class: II Final Preanesthetic Review: Meds/Allgs Chart Reviewed, Consent Obtained/Reviewed and Anes Risks/Benef Reviewed Patient Risk: Intermediate Procedure Risk: Intermediate Anesthetic Plan Anesthetic Plan: GA Disposition: Inp. Admit - Standard Bed
--- NOTE | 2022-09-13 16:17 | MHC.SHP ---
Pre-Procedural Eval Section A Date of Service: 09/13/22 The patient is an INPATIENT: Yes Changes since office visit: No Cold of Flu in the past 2 weeks, No New Medical Problems, No Changes in Medication and No Patient answered all questions The History & Physical has been completed within 30 days and I have reviewed it.: Yes Section B Chief Complaint: Obstructing Stone Details of Present Illness: cystoscopy, right retrograde, right ureteroscopy with laser lithotripsy stent placement Relevant Social History: None Present Medications: see Short Stay Collaborative assessment Medical History: No relevant PMH History of Previous Operations: No relevant previous surgery Allergies: Allergies Allergy/AdvReac Type Severity Reaction Status Date / Time No Known Allergies Allergy Verified 09/12/22 06:28 Review of Systems Sugical H&P ROS: Negative: Constitution, Cardiovascular, Respiratory, Neurological, Psychiatric, Hem-Onc, Allergic/Immunologic, Gastrointestinal, Genitourinary, Musculoskeletal, Integumentary, Endocrine and Eyes/Ears/Nose/Throat Exam Surgical H&P Exam: Normal: HEENT, Normal: Heart, Normal: Lungs, Normal: Extremities, Normal: Abdomen, Normal: Skin and Normal: Neurological Plan Diagnosis/Plan: Unchanged ( cystoscopy, right retrograde, right ureteroscopy with laser lithotripsy stent placement) I have reviewed the history and physical and performed a pertinent physical examination on my patient. No changes have occurred unless specified. Time Spent With Patient Time: Total time managing care of this patient today ____ minutes.
--- NOTE | 2022-09-13 17:11 | W.PM.OPN ---
Operative Note Operative Note Date of Service: 09/13/22 Narrative: PreOperative Diagnosis: distal right ureteric stone Post Operative Diagnosis: distal right ureteric stone Procedure: - cystoscopy, right retrograde - right dilatation of ureteric orifice under fluoroscopy - right ureteroscopy, laser lithotripsy, stone basketing - right stent placement Surgeon: Dr Dominick Wills Anesthesia: General Indications for procedure: distal right ureteric stone with right ureteral froze. Antibiotics overnight for elevated white count. Creatinine 1.2 Procedure: After informed consent was verified the patient was brought to the operating room and placed in a supine position. Anesthesia was administered per protocol. The patient was placed in a modified dorsal lithotomy position and prepped and draped in a sterile fashion. Safety pause time-out and side of surgery were confirmed. Images were available for review. Antibiotic administration confirmed. A 22 Prydeinig cystoscope was inserted per urethra. The urethra was without aabnormality. The bladder was normal in its entirety. Both ureteric orifices were seen in normal position . The right ureteric orifice was cannulated and a retrograde examination was performed. filling defect distal portion right ureter . A Sensor guidewire was placed up to the level of the renal pelvis under fluoroscopy. The rigid cystoscope was removed. A Anson dilator was placed over the Sensor guidewire and used to dilate the ureteric orifice under fluoroscopy. The dilator was removed. The semi rigid ureteral scope was placed alongside the Sensor guidewire. stone was encountered distal portion the ureter.. Using a 365 micro holmium laser fiber the stone was broken into small pieces using a combination of hammer and dusting techiques. Stone fragments were removed from the ureter using a Sure catch basket. Once the fragments were removed a decision was made to place a ureteric stent. Based on the height of the patient a 6 Fr x 28 stent was used. The string was removed from the stent prior to placement The rigid cystoscope was backloaded over the wire and advanced into the bladder. A 6 Prydeinig by 28 cm double-J stent was placed into the renal pelvis and bladder under a combination of fluoroscopy and direct visualization. The bladder was emptied. The patient tolerated the procedure well and was extubated in the operating room. They were transferred in stable condition to the recovery area. Pathology: stones Drains: Double J stent as described above
--- NOTE | 2022-09-13 19:32 | PC.NURSE ---
, Kaylin provided phone number [phone]. Phone number on file for is incorrect.
[2022-09-13] MEDS: traMADoL HCL 50 MG TABLET PO (23:23)
[2022-09-14 03:47] VITALS: BP 113/59; PULSE 67; RESP 20; TEMP 36.8; O2SAT 98
[2022-09-14] MEDS: 0.9 % Sodium Chloride 1,000 ML 100 ML IVCONT (03:58)
[2022-09-14 07:52] VITALS: BP 118/66; PULSE 71; RESP 18; TEMP 36.7; O2SAT 99
[2022-09-14] MEDS: Tamsulosin HCL 0.4 MG CAPSULE PO (08:08)
[2022-09-14] MEDS: lamoTRIgine 100 MG TABLET 200 MG PO (08:08)
--- NOTE | 2022-09-14 09:16 | PM.DS ---
DS: Providers Provider Date of Service: 09/14/22 Date of admission: 09/12/22 08:59 Primary care physician: Josephine Wing MD Consults: 09/12/22 08:58 Consult to Urology Routine Consulting Provider: Dominick Wills Reason for consultation: obstructing stone DS: Diagnosis Discharge Diagnosis (1) Calculus of kidney: Status: Acute DS: Summary Hospital Course Hospital Course: from initial hpi: 42M PMH migraines and epilepsy presented with right flank pain. pain started am of admission around 5am, 10/10 right flank, radiating to RLQ abdomen, no previous stones, father has had mutliplr calcium oxalate stones. in ED ct showed A 5 mm calculus in the right proximal ureter produces moderate right hydronephrosis. hospital course: Patient was admitted for obstructing right ureteral stone complicated by hydronephrosis. He was given IV fluids, pain control, Flomax. He was seen by Urology who performed cystoscopy with ureteroscopy, laser lithotripsy, stone basketing, right stent placement. Patient's pain significantly improved. He will be discharged home. For his epilepsy was continued on Lamictal. Time Spent with Patient Time attestation: Total time managing care of this patient today ____ minutes. Discharge coordination time: Greater than 30 minutes Quality: Safe Use of Opioids Does Pt have an Active Cancer Diagnosis on the Problem List?: No Quality: Stroke Does the patient have a stroke diagnosis?: No Physical Exam Vital Signs: Vital Signs: Last Vital Signs Temp 98.1 F 09/14/22 07:52 Pulse 71 09/14/22 07:52 Resp 18 09/14/22 07:52 BP 118/66 09/14/22 07:52 Pulse Ox 99 09/14/22 07:52 O2 Del Method 09/14/22 07:52 O2 Flow Rate 4 09/13/22 17:27 BMI result Body Mass Index 22.9 General: AO X 3, no acute distress Resp: CTA bilateral, no accessory muscles used CVS: S1,S2,RRR GI: soft, non tender, non distended Neuro: motor grossly intact, alert Psych: appropriate affect, appropriate insight DS: Data Data Completed and Pending Pending studies at discharge: Pending at discharge 09/13/22 17:20 Surgical [PTH] Routine Discharge Plan Discharge Anticipated Discharge Date/Time: 09/14/22 09:14 Patient Disposition: Home, Self-Care Discharge Diagnosis: kidney stone Referrals: Dominick Wills MD [Physician] - (Please call to follow up for your kidney stone. If you have any other concerns please return to the ED.) Josephine Wing MD [Primary Care Provider] - None Discharge Medications: New tamsulosin 0.4 mg capsule 0.4 mg PO BEDTIME 14 Days Qty: 14 0RF phenazopyridine [Pyridium] 100 mg tablet 100 mg PO TID PRN (Reason: Spasm) 4 Days Qty: 12 0RF naproxen 500 mg tablet 500 mg PO BID PRN (Reason: pain) 7 Days Qty: 14 0RF Continued lamotrigine 200 mg tablet 1 tab PO BID Discharge Orders: Discharge Order (Routine); Ordered 09/14/22 Ordered By: Bjorn Glass Diet: Advance to usual diet Activity on Discharge: As tolerated Stand Alone Forms: Patient Portal Discharge page Care Plan Goals: manage stone, prevent further Health Concerns: kidney stone Plan of Treatment: drink plenty of fluids, meds as prescribed, follow up with urology Assessment: see above Patient Instructions: Kidney Stones (ED), Hydronephrosis (ED)
--- NOTE | 2022-09-14 09:19 | P.PNIM_ITS ---
Subjective Subjective Date of Service: 09/13/22 Interval History: still with pain Physical Exam Vital Signs: Vital Signs: Last Vital Signs Temp 98.1 F 09/14/22 07:52 Pulse 71 09/14/22 07:52 Resp 18 09/14/22 07:52 BP 118/66 09/14/22 07:52 Pulse Ox 99 09/14/22 07:52 O2 Del Method 09/14/22 07:52 O2 Flow Rate 4 09/13/22 17:27 BMI result Body Mass Index 22.9 General: AO X 3, in pain Resp: CTA bilateral, no accessory muscles used CVS: S1,S2,RRR GI: soft, non tender, non distended Neuro: motor grossly intact, alert Psych: appropriate affect, appropriate insight Objective Data Active Medications Fentanyl (Fentanyl Citrate/Pf 100 Mcg/2 Ml Vial) 25 mcg IVPUSH Q5M PRN; Protocol PRN Reason: Pain, Moderate (Pain Scale 4-6 Hydromorphone HCl (Hydromorphone Hcl 0.5 Mg/0.5 Ml Syringe) 0.5 mg IVPUSH Q4H PRN; Protocol PRN Reason: moderate pain Last Admin: 09/13/22 18:10 Dose: 0.5 mg Documented By: JAGDISH Sodium Chloride (Ns) 1,000 mls @ 100 mls/hr IVCONT .Q10H [facility] Last Admin: 09/14/22 03:58 Dose: 100 mls/hr Documented By: BARRY Lamotrigine (Lamotrigine 100 Mg Tablet) 200 mg PO BID [facility] Last Admin: 09/14/22 08:08 Dose: 200 mg Documented By: JAGDISH Ondansetron HCl (Ondansetron Hcl 4 Mg/2 Ml Vial) 4 mg IVPUSH Q6H PRN PRN Reason: Nausea and Vomiting Last Admin: 09/13/22 10:04 Dose: 4 mg Documented By: MONICA Oxycodone HCl (Oxycodone Hcl Immed Release 5 Mg Tablet) 5 mg PO Q4H PRN PRN Reason: [facility] Consult (Consult Rx Perform Med Rec) 1 each MISCELLANE ONCE PRN PRN Reason: Consult order Sodium Chloride (0.9 % Sodium Chloride Flush 3 Ml Syringe) 3 ml IVFLUSH QSHIFT [facility] Last Admin: 09/14/22 08:08 Dose: Not Given Documented By: JAGDISH Non-Admin Reason: IV Running Tamsulosin HCl (Tamsulosin Hcl 0.4 Mg Capsule) 0.4 mg PO DAILY [facility] Last Admin: 09/14/22 08:08 Dose: 0.4 mg Documented By: JAGDISH Tramadol HCl (Tramadol Hcl 50 Mg Tablet) 50 mg PO Q6H PRN PRN Reason: Pain, Moderate (Pain Scale 4-6 Last Admin: 09/13/22 23:23 Dose: 50 mg Documented By: TUMASY Labs 09/13/22 02:41 09/13/22 04:29 Microbiology Microbiology Results: Microbiology 09/12/22 Unknown Urine Culture - Final Urine clean catch - Urine santos top No growth. Assessment and Plan (1) Calculus of kidney: Status: Acute Plan 42M PMH migraine and epilepsy presented with right flank pain, found to have obstructing right ureteral stone obstructing right ureteral stone ivf, pain control, flomax plan for cystoscopy today, 09/13/22 epilepsy lamictal full code reason for continued hospitalization:awating cystoscopy Time Spent With Patient Time: Total time managing care of this patient today ____ minutes. Quality Stroke Does the patient have a stroke diagnosis?: No VTE Prior VTE?: No VTE Risk Level:: Medical - low VTE Device Contraindication: Treatment Not Indicated VTE Drug Contraindication: Treatment Not Indicated
--- NOTE | 2022-09-14 09:58 | MHC.CM.PN ---
NANCY 09/13/22 Patient is discharge home self care today. Patient has arranged for transport home.
--- NOTE | 2022-09-14 12:08 | HO.POSTANES ---
Post Anesthesia Evaluation Post Anesthesia Evaluation Vital Signs: Vital Signs Temp Pulse Resp BP Pulse Ox O2 Del Method 09/14/22 07:52 98.1 F 71 18 118/66 99 Room Air 09/14/22 03:47 98.2 F 67 20 113/59 L 98 Room Air Anesthesia: General Mental Status: Awake Pain Control: Satisfactory Nausea/Vomiting: None Hydration: Adequate Anesthesia-Related Issues: No Anes. Related Issues
[2022-09-21 12:08] LABS: Stone Source RIGHT URETERAL STONE
== END 2022-09-14 13:07 | disposition home or self-care (01) ==
LOC: HO.ED 08:03 → HO.EDOVER 09:05 → HO.IMC 09-13 08:55
PROVIDERS: Student in an Organized Health Care Education/Training Program; Urology; Admitting Provider Internal Medicine; Emergency Provider Student in an Organized Health Care Education/Training Program; PCP Internal Medicine; Visit Provider Internal Medicine
PROC: (CPT 52356; principal; 2022-09-13 16:50)
DX: N13.6 Pyonephrosis (principal); N13.2 Hydronephrosis with renal and ureteral calculous obstruction; Z20.822 Contact with and (suspected) exposure to COVID-19; G43.909 Migraine, unspecified, not intractable, without status migrainosus; G40.909 Epilepsy, unspecified, not intractable, without status epilepticus
CPT/HCPCS: 52356; 52352; S2070; 36415; 74176; 80048; 80053; 81001; 82365; 83690; 85025; 85027; 87086; 87635; 88300; 96361; 96365; 96374; 96375; 96376; 99222; 99285; C1758; C1769; C2617; J0696; J1170; J1200; J1885; J1956; J2250; J2270; J2405; J2765; J3010; Q9967

== ENCOUNTER → 2022-09-23 14:56 | Outpatient (BNVA) | payer BC, SELFPAY | PROVIDERS: PCP Internal Medicine; Visit Provider Urology | DX: N20.0 Calculus of kidney (principal) | CPT/HCPCS: 52310 ==

== ENCOUNTER 2022-12-06 08:23 | Outpatient (REF) | payer BC, SELFPAY ==
--- NOTE | ~2022-12-06 | US_ITS ---
EXAMINATION: US RETROPERITONEAL LIMITED (RENAL ONLY) CLINICAL INFORMATION: Calculus of kidney. COMPARISON: CT abdomen and pelvis without contrast 09/12/2022. TECHNIQUE: Real-time imaging of the kidneys. FINDINGS: RIGHT KIDNEY: 10.5 x 4.8 x 5.4 cm (SAG x AP x TRV). The kidney is normal in size, contour, and echogenicity. Renal cortical thickness is normal. No focal parenchymal lesions or hydronephrosis. Possible tiny 2 mm nonobstructing mid pole renal stone. LEFT KIDNEY: 10.3 x 5.4 x 5.4 cm (SAG x AP x TRV). The kidney is normal in size, contour, and echogenicity. Renal cortical thickness is normal. No focal parenchymal lesions. Pelviectasis without bunny hydronephrosis. Nonobstructing stones measuring up to 3 mm, new from prior. US/US renal BI IMPRESSION: 1. Possible tiny 2 mm new nonobstructing right mid pole renal stone. No hydronephrosis. 2. Left renal pelviectasis without bunny hydronephrosis. Nonobstructing left stones measuring up to 3 mm new from prior.
== END 2022-12-06 08:24 | disposition home or self-care (01) ==
LOC: HO.US 08:23
PROVIDERS: PCP Internal Medicine; Visit Provider Urology
DX: N20.0 Calculus of kidney (principal)
CPT/HCPCS: 76775

== ENCOUNTER → 2022-12-28 08:48 | Outpatient (BNVA) | payer BC, SELFPAY | PROVIDERS: PCP Internal Medicine; Visit Provider Urology ==

== ENCOUNTER 2023-06-22 08:21 | Outpatient (REF) | payer BC, SELFPAY ==
--- NOTE | ~2023-06-22 | US_ITS ---
EXAMINATION: US RETROPERITONEAL LIMITED (RENAL ONLY) CLINICAL INFORMATION: Calculus of kidney. COMPARISON: Renal ultrasound 12/06/2022. CT abdomen and pelvis 09/12/2022. TECHNIQUE: Real-time imaging of the kidneys. FINDINGS: RIGHT KIDNEY: 11.4 x 4.9 x 5.7 cm (SAG x AP x TRV). The kidney is normal in size, contour, and echogenicity. Renal cortical thickness is normal. No calculi or focal parenchymal lesions. No hydronephrosis. There are echogenic foci is seen without twinkle artifact but no shadowing. LEFT KIDNEY: 11.2 x 5.2 x 5.2 cm (SAG x AP x TRV). The kidney is normal in size, contour, and echogenicity. Renal cortical thickness is normal. No calculi or focal parenchymal lesions. No hydronephrosis. There are multiple echogenic foci with no shadowing and no twinkle artifact US/US renal BI IMPRESSION: Vascular calcification most likely. No evidence of nephrolithiasis
== END 2023-06-22 08:22 | disposition home or self-care (01) ==
LOC: HO.HMGCX 08:21
PROVIDERS: PCP Internal Medicine; Visit Provider Urology
DX: N20.0 Calculus of kidney (principal)
CPT/HCPCS: 76775

== ENCOUNTER 2023-06-29 11:13 | Outpatient (AMB) | payer BC, SELFPAY ==
--- NOTE | 2023-06-29 11:12 | MHC.OFFVIS ---
Intake Intake Visit Reasons: 6m/US(set) Intake Note: Milton is a 43 year old male who presents today VIA telephone for a 6 month follow up appointment Allergies No Known Allergies Allergy (Verified 06/29/23 11:14) HPI HPI Comments History of Present Illness Details Milton is a pleasant male. He is a patient of Dr. Wing. He is seen for the following urologic conditions - nephrolithiasis Telemedicine Evaluation 15 min Consultation DoxSite Organic German Video Ultrasound shows resolution of small stones Positive result from vitamin B6 with Follow-up 12 month Nephrolithiasis Recent intervention for acute stone Does have family history and had eaten spinach daily Imaging - 09/30 A 5 mm calculus in the right proximal ureter produces moderate right hydronephrosis - 12/28 renal ultrasound questions small stones bilateral - 06/30 renal ultrasound minimal evidence of stones Intervention - 09/30 ureteroscopy right side Stone composition - 09/30 mixed calcium oxalate with 20% calcium phosphate Therapeutic plan - increase fluids - decreased spinach PFSH Medical History Migraine Epilepsy Family History Father Nephrolithiasis Household Members: Spouse and Children Housing: House Do you presently have visiting nurse or other home services: No Alcohol intake: never Patient Tobacco Use Status: Never used Tobacco service: No Current occupational status: employed Review of Systems Const All systems reviewed & are unremarkable except as noted in HPI and below Reports as per HPI and Reports no additional complaints Card Reports as per HPI and Reports no additional complaints Resp Reports as per HPI and Reports no additional complaints GI Reports as per HPI and Reports no additional complaints Reports as per HPI Musc Reports no additional complaints and Reports as per HPI Neuro Reports no additional complaints and Reports as per HPI Physical Exam Telemedicine evaluation Appropriate responses Regular breathing rate and rhythm Const General: cooperative, healthy appearing, comfortable and no acute distress Orientation/consciousness: patient oriented x3 HEENT Head: Yes normal to inspection Ears: hearing grossly normal bilaterally Face and sinus: Yes normal facial exam Mouth: moist mucous membranes Eyes General: appearance normal, both eyes and all related structures Neck Neck: Yes normal visual inspection, Yes full ROM and Yes trachea midline Chest Chest palpation & inspection: normal inspection of the chest Resp Effort & Inspection: normal respiratory effort, able to speak in complete sentences and no respiratory distress GI Inspection: Yes normal to inspection Back/Spine/Pelvis Cervical Spine: normal cervical lordosis Thoracic/Lumbar Spine: thoracic and lumbar spine normal to inspection Skin General skin exam: no rashes or lesions noted Neuro General: patient oriented x3, tone normal and moves all extremities Extrem General: Yes normal to inspection and Yes capillary refill normal Assessment & Plan Assessment & Plan (1) Calculus of kidney: Code(s): N20.0 - Calculus of kidney Plan 12m f/u US Orders: Orders US renal BI 364 Days N20.0 - Calculus of kidney Medications: Refilled pyridoxine (vitamin B6) 50 mg PO DAILY 90 days 90 tabs 3RF N20.0 - Calculus of kidney Patient Instructions: Imaging studies, laboratory and physical exam results were discussed and reviewed in detail. No major barriers to patient understanding were identified. An opportunity to ask questions regarding the treatment plan was provided. All questions were answered. The patient expressed understanding and agreement with the above treatment plan. The patient is aware they should contact our office by phone for worsening of their current condition or the appearance of new urologic symptoms. Compliance is encouraged with any medications and followup testing that is ordered. It is a privilege to participate in the urologic care of your patient. If you have any questions or concerns regarding treatment for the above conditions, or other urologic issues, please do not hesitate to contact me. The office telephone contact is [phone]. This note is constructed using voice recognition software. While every effort has been made to ensure accuracy rn clinical resource errors may have been included. Yours sincerely, Dr Dominick Wills MD, [facility] - Urology Providers of Expert, Compassionate Care for the Genitourinary System Telehealth Telehealth Location of provider rendering services: practice address Location of patient: address on file Patient Identification confirmed using: Name, : Yes Telehealth method: video Patient verbally consented to treatment: Yes Patient verbally consented to billing insurance company: Yes Patient informed of any privacy concerns related to visit: Yes Coding Level of Care Code Tele Est Pt Level 3 (66122) Diagnoses Calculus of kidney N20.0
== END 2023-06-29 11:40 | disposition home or self-care (01) ==
LOC: HO.HUSH 11:13
PROVIDERS: PCP Internal Medicine; Visit Provider Urology
DX: N20.0 Calculus of kidney (principal)
CPT/HCPCS: 99213

== ENCOUNTER → 2023-06-29 11:13 | Outpatient (BNVA) | payer BC, SELFPAY | PROVIDERS: PCP Internal Medicine; Visit Provider Urology ==

== ENCOUNTER 2024-06-22 08:50 | Outpatient (REF) | payer BC, SELFPAY | END 2024-06-22 08:51 | disposition home or self-care (01) | LOC: HO.HMGCX 08:50 | PROVIDERS: PCP Internal Medicine; Visit Provider Urology | DX: N20.0 Calculus of kidney (principal) | CPT/HCPCS: 76775 ==

== ENCOUNTER 2024-06-29 11:21 | Outpatient (AMB) | payer BC, SELFPAY ==
--- NOTE | 2024-06-29 11:24 | MHC.OFFVIS ---
Intake Visit Reasons: 1Y US(set) Intake Note: Patient is present for Ultrasound follow up Urology Med: Vitamin B6 Antibiotic Allergy: None Blood Thinner: None Die Designer Required: No Accompanied by: Self / Same As Patient Allergies No Known Allergies Allergy (Verified 06/29/24 11:26) HPI Comments Details: Milton is a pleasant male. He is a patient of Dr. Wing. He is seen for the following urologic conditions - nephrolithiasis Yearly follow-up Ultrasound shows resolution of small stones Positive result from vitamin B6 with Follow-up 12 month Nephrolithiasis Recent intervention for acute stone Does have family history and had eaten spinach daily Imaging - 09/30 A 5 mm calculus in the right proximal ureter produces moderate right hydronephrosis - 12/28 renal ultrasound questions small stones bilateral - 06/30 renal ultrasound minimal evidence of stones - 07/01 renal ultrasound echogenic reflectors Intervention - 09/30 ureteroscopy right side Stone composition - 09/30 mixed calcium oxalate with 20% calcium phosphate Therapeutic plan - increase fluids - decreased spinach PFSH Medical History Migraine Epilepsy Family History Father Nephrolithiasis Social History Household Members: Spouse and Children Housing: House Do you presently have visiting nurse or other home services: No Alcohol intake: never Comment: rings appropriately s/p cystoscopy Patient Tobacco Use Status: Never used Tobacco service: No Current occupational status: employed Review of Systems Const Denies chills and Denies fever(s) Card Reports no additional complaints and Denies syncope Resp Denies cough GI Denies abdominal pain and Denies heartburn Reports as per HPI and Denies change in libido Neuro Denies syncope Psych Denies change in libido Endo Denies change in libido Physical Exam Const General: cooperative, healthy appearing, comfortable and no acute distress Orientation/consciousness: patient oriented x3 HEENT Face and sinus: Yes normal facial exam Mouth: moist mucous membranes Neck Neck: Yes normal visual inspection, Yes full ROM and Yes trachea midline Chest Chest palpation & inspection: normal inspection of the chest Resp Effort & Inspection: normal respiratory effort, able to speak in complete sentences and no respiratory distress GI Inspection: Yes normal to inspection Back/Spine/Pelvis Cervical Spine: normal cervical lordosis Thoracic/Lumbar Spine: thoracic and lumbar spine normal to inspection Skin General skin exam: no rashes or lesions noted Neuro General: patient oriented x3, gait normal, tone normal and moves all extremities Extrem General: Yes normal to inspection and Yes capillary refill normal Assessment & Plan Assessment & Plan (1) Calculus of kidney: Code(s): N20.0 - Calculus of kidney Category: Medical Plan Twelve month follow-up Orders: Orders US renal BI 12 Months N20.0 - Calculus of kidney Medications: Refilled pyridoxine (vitamin B6) 50 mg PO DAILY 90 days 90 tabs 3RF N20.0 - Calculus of kidney Patient Instructions: Imaging studies, laboratory and physical exam results were discussed and reviewed in detail. No major barriers to patient understanding were identified. An opportunity to ask questions regarding the treatment plan was provided. All questions were answered. The patient expressed understanding and agreement with the above treatment plan. The patient is aware they should contact our office by phone for worsening of their current condition or the appearance of new urologic symptoms. Compliance is encouraged with any medications and followup testing that is ordered. It is a privilege to participate in the urologic care of your patient. If you have any questions or concerns regarding treatment for the above conditions, or other urologic issues, please do not hesitate to contact me. The office telephone contact is [phone]. This note is constructed using voice recognition software. While every effort has been made to ensure accuracy product promoter retail pet errors may have been included. Yours sincerely, Dr Dominick Wills MD, AIDA [facility] - Urology Providers of Expert, Compassionate Care for the Genitourinary System Coding Level of Care Code Est Pt Level 4 (41130) Diagnoses Calculus of kidney N20.0
== END 2024-06-29 12:09 | disposition home or self-care (01) ==
PROVIDERS: PCP Internal Medicine; Referring Provider Internal Medicine; Visit Provider Urology
DX: N20.0 Calculus of kidney (principal)
CPT/HCPCS: 99214

== ENCOUNTER → 2024-06-29 11:21 | Outpatient (BNVA) | payer BC, SELFPAY | PROVIDERS: PCP Internal Medicine; Visit Provider Urology ==

== ENCOUNTER 2025-06-24 09:52 | Outpatient (REF) | payer BC, SELFPAY ==
--- NOTE | ~2025-06-24 | US_ITS ---
CLINICAL HISTORY: N20.0 - Calculus of kidney US of kidneys Comparison: US/ME/SR - US KIDNEY BILATERAL - 06/22/24 08:56 EST Findings: Right kidney is normal in size, echogenicity and morphology, 12.0 cm in length. Mild pelviectasis. No calculus, mass or hydronephrosis. Left kidney is normal in size, echogenicity and morphology, 10.8 cm in length. Mild pelviectasis. No calculus, mass or hydronephrosis. Limited color Doppler demonstrates unremarkable bilateral blood flow. Impression: Mild bilateral renal pelviectasis, no hydronephrosis. This document has been electronically signed by: Jayde Anderson MD on 06/24/2025 16:31:14
== END 2025-06-24 09:53 | disposition home or self-care (01) ==
LOC: HO.HMGCX 09:52
PROVIDERS: PCP Internal Medicine; Visit Provider Urology
DX: N20.0 Calculus of kidney (principal)
CPT/HCPCS: 76775

== ENCOUNTER → 2025-06-24 10:00 | Outpatient (BNV) | payer BC, SELFPAY | PROVIDERS: PCP Internal Medicine; Visit Provider Radiology Diagnostic Radiology | DX: N20.0 Calculus of kidney (principal); N28.89 Other specified disorders of kidney and ureter | CPT/HCPCS: 76775 ==

== ENCOUNTER 2025-07-02 08:34 | Outpatient (AMB) | payer BC, SELFPAY ==
--- NOTE | 2025-07-02 08:34 | A.OFFVIS_ITS ---
Intake Visit Reasons: 1Y Ultrasound Intake Note: Patient is present for Ultrasound follow up Urology Med: Vitamin B6 Antibiotic Allergy: None Blood Thinner: None Imaging: Renal Ultrasound 06/24/25 Hairspring Ii Inspector Required: No Accompanied by: Self / Same As Patient Allergies No Known Allergies Allergy (Verified 07/02/25 08:35) HPI Comments Details: Milton is a pleasant male. He is a patient of Dr. Wing. He is seen for the following urologic conditions - nephrolithiasis Telemedicine Evaluation 15 min Consultation D[employer]res[employer] German Video Yearly follow-up Ultrasound shows no evidence of stones Continue yearly follow-up to 5 years Nephrolithiasis Recent intervention for acute stone Does have family history and had eaten spinach daily Imaging - 09/30 A 5 mm calculus in the right proximal ureter produces moderate right hydronephrosis - 12/28 renal ultrasound questions small stones bilateral - 06/30 renal ultrasound minimal evidence of stones - 07/01 renal ultrasound echogenic reflectors - 07/02 renal ultrasound no evidence of stone Intervention - 09/30 ureteroscopy right side Stone composition - 09/30 mixed calcium oxalate with 20% calcium phosphate Therapeutic plan - increase fluids - decreased spinach PFSH Medical History Migraine Epilepsy Family History Father Nephrolithiasis Social History Household Members: Spouse and Children Housing: House Do you presently have visiting nurse or other home services: No Alcohol intake: never Comment: rings appropriately s/p cystoscopy Patient Tobacco Use Status: Never used Tobacco service: No Current occupational status: employed Review of Systems Const All systems reviewed & are unremarkable except as noted in HPI and below Reports no additional complaints Resp Reports no additional complaints GI Reports no additional complaints Reports as per HPI Musc Reports no additional complaints Physical Exam Telemedicine evaluation Appropriate responses Regular breathing rate and rhythm HEENT Head: Yes normal to inspection Ears: hearing grossly normal bilaterally Eyes General: appearance normal, both eyes and all related structures Neck Neck: Yes normal visual inspection Chest Chest palpation & inspection: normal inspection of the chest Resp Effort & Inspection: normal respiratory effort and able to speak in complete sentences Telehealth Telehealth Telehealth Platform: Moxie Location of provider rendering services: practice address Location of patient: address on file Patient Identification confirmed using: Name, : Yes Telehealth method: video Patient verbally consented to treatment: Yes Patient verbally consented to billing insurance company: Yes Patient informed of any privacy concerns related to visit: Yes Minutes spent on Phone/Video with Pt.: 15 Assessment & Plan Assessment & Plan (1) Calculus of kidney: Code(s): N20.0 - Calculus of kidney Category: Medical Plan Continue fluids Continue B6 Continue dietary restriction of [place] Orders: Orders US renal BI 12 Months N20.0 - Calculus of kidney Medications: Refilled pyridoxine (vitamin B6) 50 mg PO DAILY 90 tabs 3RF 90 days N20.0 - Calculus of kidney Patient Instructions: This note is constructed using voice recognition software. While every effort has been made to ensure accuracy log stacker operator errors may have been included. Imaging studies, laboratory and physical exam results were discussed and reviewed in detail. No major barriers to patient understanding were identified. An opportunity to ask questions regarding the treatment plan was provided. All questions were answered. The patient expressed understanding and agreement with the above treatment plan. The patient is aware they should contact our office by phone for worsening of their current condition or the appearance of new urologic symptoms. Compliance is encouraged with any medications and followup testing that is ordered. It is a privilege to participate in the urologic care of your patient. If you have any questions or concerns regarding treatment for the above conditions, or other urologic issues, please do not hesitate to contact me. The office telephone contact is [phone]. Sincerely, Dr Dominick Wills MD, [facility] - Urology Compassionate Specialist Care for the Genitourinary System Coding Level of Care Code Tele Est Pt Level 4 (31079) Diagnoses Calculus of kidney N20.0
--- OUTSIDE RECORDS SUMMARY | 2025-07-02 08:51 | XMS_ITS | Encounter Summary ---
Author Organization [facility] Address [address] [place] [address] Phone Care Team Providers Care Research Group Director Name Role Phone Jake Almendarez MD Unavailable + Pcp, Not Required Primary Care Provider Unavaila Josephine East A Primary Care Provider Josephine Wing A Unavailable [phone] Encounter Details Date Type Department Care Team (Latest Contact Info) Description 05/25/2018 Transcribe Orders [facility] Phleb [address] [place] [address] Isaiah Raymond MD [address] [facility], [address] [place], [place] [phone] [email or web address] Seizure (Primary Dx) Social History Tobacco Use Types Packs/Day Years Used Date Smoking Tobacco: Never Smokeless Tobacco: Never Alcohol Use Standard Drinks/Week Comments Yes 0 (1 standard drink = 0.6 oz pur e alcohol) Sex and Gender Information Value Date Recorded Sex Assigned at Not on file Legal Sex Male 3:50 PM EDT Gender Identity Not on file Sexual Orientation Not on file documented as of this encounter Plan of Treatment Upcoming Encounters Date Type Department Care Team (Late st Contact Info) Description 07/08/2025 9:30 AM EST Office Visit [facility] [address] [place] [address] Dr [place] [address] Josephine Wing MD [address] [place] [address], [address] [facility] [place] [address] [email or web address] documented as of this encounter Results * Lamotrigine level (05/25/2018 7:07 AM EDT) LAMOTRIGINE 8.4 2.5 - 15.0 mcg/mL [facility] SUPERIOR Comment: (NOTE) ADDITIONAL INFORMATION This test was developed and its performance characteristics determined by [facility] in a manner consistent with CLIA requirements. This test has not been cleared or approved by the U.S. Food and Drug Administration. Blood 05/25/2018 7:07 AM EDT 05/25/2018 7:10 AM EDT us Isaiah Raymond MD LAB BLOOD BKR ORDERABLES Fin al Result [facility]PATH [address] [place] [address] documented in this encounter Visit Diagnoses Diagnosis Seizure- Primary Other convulsions documented in this encounter Additional Health Concerns Infection Onset Date Last Indicated Resolved Time CoV-Risk Comment:Referred for COVID-19 testing 12/07/2019 12/07/2019 12/21/2019 1:31 AM E DT CoV-Risk 12/27/2019 12/27/2019 01/10/2020 1:24 AM EDT CoV-Risk Comment:From COVIDPass 05/14/2021 05/14/2021 05/28/2021 1:22 A M EDT documented as of this encounter Care Teams Research Group Director Relationship Specialty Start Date End Date Pcp, Not Required [address] [place] [id number] PCP - General 08/10/17 02/22/19 Josephine Wing MD [address] [place] [address], [address]nd [place] [address] [email or web address] PCP - General Internal Medicine 02/23/19 Jake Almendarez MD [address] [place] [phone] [email or web address] Historical LMR Provider 05/25/17 08/15/21 Josephine Wing MD [address] [place] [address], [address] [place] [address] [email or web address] Insurance Assigned Provider 11/12/23 documented as of this encounter Additional Source Comments The information contained in this document represents components of the legal health record. It is not the complete legal health record.[facility]
--- OUTSIDE RECORDS SUMMARY | 2025-07-02 08:51 | XMS_ITS | Encounter Summary ---
Author Organization [facility] Address [address] [place] [address] Phone Care Team Providers Care Modern Greek Studies Professor Name Role Phone Jake Almendarez MD Unavailable + Pcp, Not Required Primary Care Provider Unavaila Josephine East A Primary Care Provider [phone] Josephine Wing A Unavailable [phone] Encounter Details Date Type Department Care Team (Latest Contact Info) Description 09/08/2018 Transcribe Orders [facility] Phleb Main [address] [place] [address] Isaiah Raymond MD [address] [facility], [address] [place], [place] [id number] [email or web address] Seizure (Primary Dx) Social History [...] EST Office Visit [facility] [address] [place] [address] Dr Fraser [place]A [address] Josephine Wing MD [address] [place] [address], [address]nd Floor [place] [address] [email or web address] documented as of this encounter Procedures Procedure Name Priority Date/Time Associated Diagnosis Comments LAMOTRIGINE LEVEL Routine 09/08/2018 7:4 9 AM EST Seizure documented in this encounter Results * LAMOTRIGINE LEVEL (09/08/2018 7:49 AM EST) LAMOTRIGINE 8.7 2.5 - 15.0 mcg/mL [facility]PATH SUPERIOR Comment: (NOTE) ADDITIONAL INFORMATION This test was developed and its performance characteristics determined by [facility] in a manner consistent with CLIA requirements. This test has not been cleared or approved by the U.S. Food and Drug Administration. Blood 09/08/2018 7:49 AM EST 09/08/2018 7:52 AM EST us Isaiah Raymond MD LAB BLOOD BKR ORDERABLES Fin al Result [facility] [address] [place] [address] documented in this encounter Visit Diagnoses Diagnosis Seizure- Primary Other convulsions documented in this encounter Additional Health Concerns Infection Onset Date Last Indicated Resolved Time CoV-Risk Comment:Referred for COVID-19 testing 12/07/2019 12/07/2019 12/21/2019 1:31 AM E DT CoV-Risk 12/27/2019 12/27/2019 01/10/2020 1:24 AM EDT CoV-Risk Comment:From COVIDPass 05/14/2021 05/14/2021 05/28/2021 1:22 A M EDT documented as of this encounter Care Teams Modern Greek Studies Professor Relationship Specialty Start Date End Date Pcp, Not Required [address] [place] [address] PCP - General 08/10/17 02/22/19 Josephine Wing MD [address] [place] [address], [address] [place] [phone] [email or web address] PCP - General Internal Medicine 02/23/19 Jake Almendarez MD [address] [place] [phone] [email or web address] Historical LMR Provider 05/25/17 08/15/21 Josephine Wing MD [address] [place] [address] [email or web address] Insurance Assigned Provider 11/12/23 documented as of this encounter Additional Source Comments The information contained in this document represents components of the legal health record. It is not the complete legal health record.[facility]
--- OUTSIDE RECORDS SUMMARY | 2025-07-02 08:51 | XMS_ITS | Encounter Summary ---
Author Organization [facility] Address [address] [place] [address] Phone Care Team Providers Care Party Plan Salesperson Name Role Phone Jake Almendarez MD Unavailable + Pcp, Not Required Primary Care Provider Unavaila Josephine East MD Primary Care Provider [phone] Josephine Wing MD Unavailable [phone] Encounter Details Date Type Department Care Team (Latest Contact Info) Description 08/10/2017 Transcribe Orders [facility] [address] [place] [address] Isaiah Raymond MD [address] [place] [address], [address] [place], [place] [phone] [email or web address] Seizures (Primary Dx) Social History Tobacco Use Types Packs/Day Years Used Date Smoking Tobacco: Never Sex and Gender Information Value Date Recorded Sex Assigned at Not on file Legal Sex Male 3:50 PM EDT Gender Identity Not on file Sexual Orientation Not on file documented as of this encounter Plan of Treatment Upcoming Encounters Date Type Department Care Team (Late st Contact Info) Description 07/08/2025 9:30 AM EST Office Visit [facility] [address] [place] [address] [place] [address] Josephine Wing MD [address] [place] [address], [address] [place] [address] [email or web address] documented as of this encounter Results * Lamotrigine level (08/10/2017 8:53 AM EST) LAMOTRIGINE 5.6 2.5 - 15.0 mcg/mL [facility] Comment: (NOTE) ADDITIONAL INFORMATION This test was developed and its performance characteristics determined by [facility] in a manner consistent with CLIA requirements. This test has not been cleared or approved by the U.S. Food and Drug Administration. Blood 08/10/2017 8:53 AM EST 08/10/2017 8:55 AM EST us Isaiah Raymond MD LAB BLOOD BKR ORDERABLES Fin al Result [facility] MED/PATH SUPERIOR [address] [place] [address] documented in this encounter Visit Diagnoses Diagnosis Seizures- Primary Other convulsions documented in this encounter Additional Health Concerns Infection Onset Date Last Indicated Resolved Time CoV-Risk Comment:Referred for COVID-19 testing 12/07/2019 12/07/2019 12/21/2019 1:31 AM E DT CoV-Risk 12/27/2019 12/27/2019 01/10/2020 1:24 AM EDT CoV-Risk Comment:From COVIDPass 05/14/2021 05/14/2021 05/28/2021 1:22 A M EDT documented as of this encounter Care Teams Party Plan Salesperson Relationship Specialty Start Date End Date Pcp, Not Required [address] [place] [address] PCP - General 08/10/17 02/22/19 Josephine Wing MD [address] [place] [address], [address] [place] [address] [email or web address] PCP - General Internal Medicine 02/23/19 Jake Almendarez MD [address] [place] [phone] [email or web address] Historical LMR Provider 05/25/17 08/15/21 Josephine Wing MD [address] [place] [address], [address] [place] [address] [email or web address] Insurance Assigned Provider 11/12/23 documented as of this encounter Additional Source Comments The information contained in this document represents components of the legal health record. It is not the complete legal health record.[facility]
--- OUTSIDE RECORDS SUMMARY | 2025-07-02 08:51 | XMS_ITS | Encounter Summary ---
Author Organization [facility] Address [address] [place] [address] Phone Care Team Providers Care Marine Fisheries Technician Name Role Phone Wing, Josephine A MD Primary Care Provider [phone] Wing, Josephine A MD Unavailable [phone] Encounter Details Date Type Department Care Team (Late st Contact Info) Description 06/25/2025 Orders Only [facility] [address] [place] [address] Unknown, Unknown, Social History Tobacco Use Types Packs/Day Years Used Date Smoking Tobacco: Never Smokeless Tobacco: Never Alcohol Use Standard Drinks/Week Comments Not Currently 0 (1 standard drink = 0.6 oz pur e alcohol) infrequent Child or Family Care Answer Date Record ed Do you have problems with on e of the following making it difficult for you to work, study, or receive health care? No 07/01/2024 Education Answer Date Recorded Are you interested in help w ith more adult education (for example, completing high school, GED, job training, learning the Montenegrin language, technical skills, or developing parenting skills)? No 07/01/2024 Are you concerned about learning? Not on file 07/01/2024 No 07/01/2024 Yes 07/01/2024 Food Answer Date Recorded Within the past 6 months we worried whether our food would run out before we got money to buy more. Never True 07/01/2024 Within the past 6 months the food we bought just didn't last and we didn't have enough money to get more. Never True Residential Stability Answer Date Recor ded What is your housing situation today? I have sil wood 07/01/2024 How many times have you move d in the past 12 months? Zero (I did not move) 07/01/2024 Paying for Meds Answer Date Recorded Do you have trouble paying for medicines? No 07/01/2024 Paying Utility Bills Answer Date Record ed Do you have trouble paying y our heating or electricity bill? I choose not to answer 07/01/2024 Transportation Answer Date Recorded Has the lack of transportati on kept you from medical appointments or from getting medications? No 07/01/2024 Unemployment Answer Date Recorded Are you currently unemployed or working on a part-time or temporary basis, and looking for work? I choose not to answer 07/01/2024 Digital Access Answer Date Recorded No 07/01/2024 Yes 07/01/2024 Do you have reliable internet access at home? Ye s 07/01/2024 Do you have a device (e.g., phone, tablet, computer) with a working camera? Yes 07/01/2024 Intimate Partner Violence Answer Date R ecorded Denied Basic Needs Not on file 07/01/2024 In the past 12 months have y ou been in a relationship with a person who hurts, threatens, or tries to control you? No 07/01/2024 Worried food would run out Not on file 07/01 In the past 12 months have y ou been in a relationship with a person who hurts, threatens, or tries to control you? No 07/01/2024 Sex and Gender Information Value Date Recorded Sex Assigned at Not on file Legal Sex Male 3:50 PM EDT Gender Identity Not on file Sexual Orientation Not on file documented as of this encounter Plan of Treatment Upcoming Encounters Date Type Department Care Team (Late st Contact Info) Description 07/08/2025 9:30 AM EST Office Visit [facility] [address] [place] [address] [place] [address] Josephine Wing MD [address] [facility], [address] [place] [address] documented as of this encounter Procedures Procedure Name Priority Date/Time Associated Diagnosis Comments OUTSIDE IMAGING Routine 06/24/2025 2:54 PM EST documented in this encounter Results * Outside Imaging Report Only (06/24/2025 2:54 PM EST) us Unknown Unknown IMG XR CHEST Edited Result - Final documented in this encounter Visit Diagnoses Not on filedocumented in this encounter Additional Health Concerns Assessment Noted Time PHQ-2 Depression Total Score: 1 07/01/20 9:49 PM EST documented as of this encounter Care Teams Marine Fisheries Technician Relationship Specialty Start Date End Date Josepihne Wing MD [address] [place] [phone] PCP - General Internal Medicine 02/23/19 Josephine Wing MD [address] [place] [phone] Insurance Assigned Provider 11/12/23 documented as of this encounter Additional Source Comments The information contained in this document represents components of the legal health record. It is not the complete legal health record.[facility]
--- OUTSIDE RECORDS SUMMARY | 2025-07-02 08:51 | XMS_ITS | Clinical Summary ---
Author Organization [facility] Address [address] [place] [address] Phone Care Team Providers Care Toolroom Attendant Name Role Phone Josephine Wing MD Primary Care Provider [phone] Josephine Wing MD Unavailable [phone] Allergies No known active allergies Medications lamoTRIgine (LAMICTAL) 200 MG tablet TAKE 1 TABLET IN THE MORNING AND 1 BEFORE BED 3 05/02/2018 Active ibuprofen (ADVIL,MOTRIN) 200 MG tablet 1 tablet as needed Active VITAMIN B-6 50 MG tablet Take 50 mg by mouth daily. 1 tablet daily 10/29/2022 Active Active Problems No known active problems Encounters Date Type Department Care Team Description 06/28/2025 Telephone [place] [address] [place] [address] Josephine Wing MD referral 06/25/2025 Orders Only [address] [place] [address] Unknown, Unknown, from Last 3 Months Immunizations Immunization Administration Dates Next Due COVID-19 (Pre-05/30) Moderna Vaccine, mRNA, PF 06/10/2021,09/24/2020,08/27/2020 INFLUENZA, SPLIT VIRUS, TRIVALENT PF 07/02/2024 Influenza Quadrivalent Prese rvative Free IM 05/26/2021,05/26/2021,06/05/2019,2017,05/26/2017,05/27/2016,05/13/2015 Td (adult) 5 Lf Tetanus Toxo id, PF, Adsorbed 02/23/2019 Family History Medical History Relation Comments Stroke Paternal Grandmother Stroke Colon polyps Sister Relation Status Comments Father Alive Mother Alive Paternal Grandmother Sister Alive Social History Tobacco Use Types Packs/Day Years Used Date Smoking Tobacco: Never Smokeless Tobacco: Never Tobacco Cessation:Counseling Given: Not Answered Alcohol Use Standard Drinks/Week Comments Not Currently [...] high school, GED, job training, learning the Micronesian language, technical skills, or developing parenting skills)? [...] on file Sexual Orientation Not on file Last Filed Vital Signs Vital Sign Reading Time Taken Comments Blood Pressure 119/76 02/02/2025 11:04 AM EDT Pulse 90 02/02/2025 11:04 AM EDT Temperature 36.6 C (97.9 F) 05/14/2021 9:33 AM EDT Respiratory Rate 20 01/25/2025 1:49 PM EDT Oxygen Saturation 98% 01/25/2025 1:49 PM EDT Inhaled Oxygen Concentration - - Weight 68.9 kg (152 lb) 02/02/2025 11:04 AM EDT Height 175.3 cm (5' 9 ) 02/02/2025 11:04 AM EDT Body Mass Index 22.45 02/02/2025 11:04 AM EDT Plan of Treatment Upcoming Encounters Date Type Department Care Team (Late st Contact Info) Description 07/08/2025 9:30 AM EST Office Visit [facility] [address] [place] [address] [place] [address] Josephine Wing MD [address] [place] [address], [address] [place] [address] [email or web address] Health Maintenance Due Date Last Done Comments INFLUENZA VACCINE (#1) 2025 4, 05/26/2021, 05/26/2021, Additional history exists COVID-19 VACCINE (2024- season) 2025 06/10/2021, 09/24/2020, 08/27/2020 COLOGUARD 2025 FIT TEST 2025 FOBT 2025 SIGMOIDOSCOPY 2025 VIRTUAL COLONOSCOPY 2025 DEPRESSION SCREENING 07/01/2025 07/01/2024 HEPATITIS C SCREENING 07/02/2026 Postpo sandrine from 1998 (Patient Declines / Guardian Declines) HIV ONE-TIME SCREENING (18-65 YEARS) 07/02/2026 Postponed from 1998 (Patient Declines / Guardian Declines) COLONOSCOPY 07/18/2028 07/18/2018 COLORECTAL CANCER SCREENING 07/18/2028 Adult Td,Tdap Booster 02/23/2029 02/23/2019 LIPID PANEL 07/02/2029 07/02/2024, 01/06, 02/20/2020, Additional history exists SMOKING STATUS SCREENING (Once After 26 Yrs) Completed 01/25/2025 HEPATITIS A VACCINES Aged Out No long er eligible based on patient's age to complete this topic HIB VACCINES Aged Out No longer eligi ble based on patient's age to complete this topic MENINGOCOCCAL VACCINES (ACWY) Aged Out No longer eligible based on patient's age to complete this topic MENINGOCOCCAL VACCINES (B) Aged Out N o longer eligible based on patient's age to complete this topic PNEUMOCOCCAL VACCINES (0-49 years) Aged Out No longer eligible based on patient's age to complete this topic Medical Devices Not on file Procedures Procedure Name Priority Date/Time Associated Diagnosis Comments OUTSIDE IMAGING Routine 06/24/2025 2:54 PM EST LIPID PANEL Routine 07/02/2024 11:22 AM EST Annual physical exam ENDOSCOPY, COLON 07/18/2018 8:38 AM EST from Last 3 Months or Most Recently Relevant to Health Maintenance Results * Outside Imaging Report Only (06/24/2025 2:54 PM EST) us Unknown Unknown MD IMG XR CHEST Edited Result - Final * Lipid panel (07/02/2024 11:22 AM EST) HDL 47 mg/dL [facility] Comment: Interpretation <40 mg/dL: Low HDL cholesterol (major risk factor for CHD) Greater than or equal to 60 mg/dL: High HDL cholesterol ( negative risk factor for CHD) HDL - cholesterol is affected by a number of factors, e.g. smoking, excerise, hormones, sex and age. CHOLESTEROL 173 0 - 240 mg/dL [facility] TRIGLYCERIDES 115 30 - 160 mg/dL [facility] LDL 103 50 - 129 mg/dL [facility] Comment: LDL levels in terms of risk for coronary heart disease: <100 mg/dL: Optimal 100-129 mg/dL: Near or above optimal 130-159 mg/dL: Borderline high 160-189 mg/dL: High >190 mg/dL: Very High CARDIAC RISK RATIO 3.7 3.4 - 5.0 C [facility] Blood 07/02/2024 11:2 2 AM EST 07/02/2024 11:25 AM EST us Josephine A Maciej TAMEZ LAB BLOOD BKR ORDERABLES Betsey denney Result Performing Organization Address City/State/[facility] Co de Phone Number [address] [address] * ENDOSCOPY, COLON (07/18/2018 8:38 AM EST) Narrative Transcriptions Shila Spence MD - 07/18/2018 8:38 AM EST Patient Name: Milton Gilbert Attending MD:: SHILA SPENCE MD Procedure Date: 07/18/2018 8:38 AM Date of : 1980 Age: 38 Admit Type: Outpatient Gender: Male Room: [facility] 05 Referring MD: JAKE ALMENDAREZ Exam Type: Colonoscopy Indications: Colon cancer screening in patient with 1st-degreerelative having advanced adenoma of the colon before age 60,This is the patient's first colonoscopy Medications: Monitored Anesthesia Care Procedure: Informed consent was obtained from the patient after discussion of the indications, limitations,alternatives, benefits, and risks of the procedure. Risksspecifically discussed include but are not limited to medication reactions, missed lesions, bleeding, perforation, orthe need for emergent surgery. Throughout the procedure, the patient's blood pressure, pulse, end-tidal CO2, and oxygen saturations were monitored continuously. The Olympus pediatric variable colonoscope [id number]-[id number]#1 was introduced through the anus and advanced to the terminal ileum, with identification of the appendiceal orifice and IC valve. The colonoscopy was performed without difficulty. The patient tolerated the procedure well. The quality of the bowel preparation was good. Complications: No immediate complications. Estimated blood loss:None. Findings: The perianal and digital rectal examinations werenormal. Pertinent negatives include normal sphincter tone. The terminal ileum appeared normal. The entire examined colon appeared normal on direct and retroflexion views. Impression: - The examined portion of the ileum was normal. - The entire examined colon is normal on direct and retroflexion views. - No specimens collected. Recommendation: - Repeat colonoscopy in 5 years for screeningpurposes. SHILA SPENCE MD 07/18/2018 8:58:18 AM This report has been signed electronically. Number of Addenda: 0 Note Initiated On: 07/18/2018 8:38 AM Procedure Code(s): --- Professional --- 10455, Colonoscopy, flexible; diagnostic, including collection of specimen(s) by brushing or washing, when performed (separateprocedure) --- Technical --- 31619, Colonoscopy, flexible; diagnostic, including collection of specimen(s) by brushing or washing, when performed (separateprocedure) Diagnosis Code(s): --- Professional --- Z83.71, Family history of colonic polyps --- Technical --- Z83.71, Family history of colonic polyps CPT copyright 2016 [employer]. All rights reserved. The codes documented in this report are preliminary and upon aquacultural worker supervisor reviewmay be revised to meet current compliance requirements. [address] [place] [address] Jake Almendarez MD GI PROCEDURE ORDER ELYSE Final Result from Last 3 Months or Most Recently Relevant to Health Maintenance Insurance [facility] Address: [facility] [address] [place] [address] [facility] Care Teams Toolroom Attendant Relationship Specialty Start Date End Date Josephine Wing MD [address] [place] [address], [address] [place] [address] [email or web address] PCP - General Internal Medicine 02/23/19 Josephine Wing MD [address] [place] [address] [email or web address] Insurance Assigned Provider 11/12/23 Additional Source Comments The information contained in this document represents components of the legal health record. It is not the complete legal health record.[facility]
--- OUTSIDE RECORDS SUMMARY | 2025-07-02 08:51 | XMS_ITS | Encounter Summary ---
Author Organization [facility] Address [address] [facility] [address] [place] [address] Phone Care Team Providers Care Laborer Dairy Farm Name Role Phone Jake Almendarez MD Unavailable + Pcp, Not Required Primary Care Provider Unavaila Josephine East MD Primary Care Provider [phone] Josephine Wing MD Unavailable [phone] Encounter Details Date Type Department Care Team (Late st Contact Info) Description 07/18/2018 Procedure Pass [facility] Endoscopy Admitting Dept Virtual Department [address] [place] [address] Social History Tobacco Use Types Packs/Day Years [...] Encounters Date Type Department Care Team (Late Contact Info) Description 07/08/2025 9:30 AM EST Office Visit [facility] [address] [place] [address] [place] [address] Josephine Wing MD [address] [place] [address], [address] [place]A [place] [address] documented as of this encounter Visit Diagnoses Not on filedocumented in this encounter Additional Health Concerns Infection Onset Date Last Indicated Resolved Time CoV-Risk Comment:Referred for COVID-19 testing 12/07/2019 12/07/2019 12/21/2019 1:31 AM E DT CoV-Risk 12/27/2019 12/27/2019 01/10/2020 1:24 AM EDT CoV-Risk Comment:From COVIDPass 05/14/2021 05/14/2021 05/28/2021 1:22 A M EDT documented as of this encounter Care Teams Laborer Dairy Farm Relationship Specialty Start Date End Date Pcp, Not Required [address] [place] [address] PCP - General 08/10/17 02/22/19 Josephine Wing MD [address] [place] [address] PCP - General Internal Medicine 02/23/19 Jake Almendarez MD [address] [place] [address] [email or web address] Historical LMR Provider 05/25/17 08/15/21 Josephine Wing MD [address] [place] [phone] Insurance Assigned Provider 11/12/23 documented as of this encounter Additional Source Comments The information contained in this document represents components of the legal health record. It is not the complete legal health record.[facility]
--- OUTSIDE RECORDS SUMMARY | 2025-07-02 08:51 | XMS_ITS | Encounter Summary ---
Author Organization [facility] Address [address] [place] [address] Phone Care Team Providers Care Catalog Specialist Name Role Phone Josephine Wing MD Primary Care Provider [phone] Josephine Wing MD Unavailable [phone] Reason for Referral * Consultation (Within 2 weeks) - Authorized Specialty Diagnoses / Procedures Referred By Contcarrillo t Referred To Contact Diagnoses Kidney stone Josephine Wing MD [address] [facility], 2nd Floor [place], [place] Phone: tel: fax: [email or web address] Dominick Wills MD [address] [place] [address] [place] [address] Phone: tel: fax: Referral ID Status Reason Start Date Expiration Date V isits Requested Visits Authorized [id number] Authorized 07/02/2025 07/02/2026 6 6 Reason for Visit * Reason Onset Date Comments referral 06/28/2025 Encounter Details Date Type Department Care Team (Late st Contact Info) Description 06/28/2025 Telephone [facility] [address] [place] [address] Dr [place] [phone] Josephine Wing MD [address] [place] [address], [address] [place] [address] [email or web address] referral Social History Tobacco Use Types Packs/Day Years [...] high school, GED, job training, learning the Ukrainian language, technical skills, or developing parenting skills)? [...] on file documented as of this encounter Progress Notes * Lesli Ennis RN - 06/28/2025 1:27 PM EST External referral to Urology pended to for Kidney Stone. documented in this encounter Plan of Treatment Upcoming Encounters Date Type Department Care Team (Late st Contact Info) Description 07/08/2025 9:30 AM EST Office Visit [facility] [address] [place] [address] [place] [address] Josephine Wing MD [address] [place] [address] [email or web address] Scheduled Referrals Name Type Priority Associated Diagnoses Order Schedule Ambulatory referral to External Urology Outpatient Referral Routine Kidney stone Ordered: 06/28/2025 documented as of this encounter Visit Diagnoses Diagnosis Kidney stone- Primary Calculus of kidney documented in this encounter Additional Health Concerns Assessment Noted Time PHQ-2 Depression Total Score: 1 07/01/20 9:49 PM EST documented as of this encounter Care Teams Catalog Specialist Relationship Specialty Start Date End Date Josephine Wing MD [address] [place] [address] [email or web address] PCP - General Internal Medicine 02/23/19 Josephine Wing MD [address] [place] [address], [address] [place] [address] [email or web address] Insurance Assigned Provider 11/12/23 documented as of this encounter Additional Source Comments The information contained in this document represents components of the legal health record. It is not the complete legal health record.[facility]
--- OUTSIDE RECORDS SUMMARY | 2025-07-02 08:51 | XMS_ITS | Encounter Summary ---
Author Organization [employer] [facility] Address [address] [place] [address] Phone Care Team Providers Care Gravel Roofer Name Role Phone Jake Almendarez MD Unavailable + Josephine Wing MD Primary Care Provider [phone] Josephine Wing MD Unavailable [phone] Encounter Details Date Type Department Care Team (Latest Contact Info) Description 05/11/2019 Transcribe Orders [address] [place] [address] Isaiah Raymond MD [address] [place] [address], [address] [place] [address] [email or web address] Seizure (Primary Dx) Social History Tobacco Use Types Packs/Day Years Used Date Smoking Tobacco: Never Smokeless Tobacco: Never Alcohol Use Standard Drinks/Week Comments Yes 0 (1 standard drink = 0.6 oz pur e alcohol) rare Sex and Gender Information Value Date Recorded Sex Assigned at Not on file Legal Sex Male 3:50 PM EDT Gender Identity Not on file Sexual Orientation Not on file documented as of this encounter Plan of Treatment Upcoming Encounters Date Type Department Care Team (Late st Contact Info) Description 07/08/2025 9:30 AM EST Office Visit [facility] [address] [place] [address] [place] [address] Josephine Wing MD [address] [place] [address], [address] [place] [phone] [email or web address] documented as of this encounter Results * Lamotrigine level (05/11/2019 8:14 AM EDT) LAMOTRIGINE 8.2 4.0 - 18.0 mg/L [facility] Blood 05/11/2019 8:14 AM EDT 05/11/2019 8:16 AM EDT us Isaiah Raymond MD LAB BLOOD BKR ORDERABLES Fin al Result [address] [address] documented in this encounter Visit Diagnoses Diagnosis Seizure- Primary Other convulsions documented in this encounter Additional Health Concerns Infection Onset Date Last Indicated Resolved Time CoV-Risk Comment:Referred for COVID-19 testing 12/07/2019 12/07/2019 12/21/2019 1:31 AM E DT CoV-Risk 12/27/2019 12/27/2019 01/10/2020 1:24 AM EDT CoV-Risk Comment:From COVIDPass 05/14/2021 05/14/2021 05/28/2021 1:22 A M EDT Assessment Noted Time PHQ-2 Depression Total Score: 0 02/24/20 19 1:28 PM EDT documented as of this encounter Care Teams Gravel Roofer Relationship Specialty Start Date End Date Josephine Wing MD [address] [place] [address] [email or web address] PCP - General Internal Medicine 02/23/19 Jake Almendarez MD [address] [place] [address] [email or web address] Historical LMR Provider 05/25/17 08/15/21 Josephine Wing MD [address] [place] [address], [address] [place] [address] [email or web address] Insurance Assigned Provider 11/12/23 documented as of this encounter Additional Source Comments The information contained in this document represents components of the legal health record. It is not the complete legal health record.[facility]
--- OUTSIDE RECORDS SUMMARY | 2025-07-02 08:51 | XMS_ITS | Data Portability ---
Author Organization [place] [facility], [address] Address [address] [place] [address] Assessment Encounter Date Assessment Date Assessment LastModified by Organization Details LastModified Time 06/06/2024 06/06/2024 you are seen today for a foreign body feeling to right eye examination did not show any foreign body, no corneal abrasion eye drops for pain have been prescribed please see an eye doctor if not feeling better in 2-3 days thank you sri Not available 06/06/2024 10:52:31 Plan of Treatment Reminders Order Date Submit Date Provider Last Modified By Organization Details Last Modified Time Details Appointments None recorded. Lab None recorded. Referral None recorded. Procedures None recorded. Surgeries None recorded. Imaging None recorded. Medication Orders ketorolac 0.5 % eye drops 2023 024 [facility], [address] [place], [address], 10:49:34 Patient TargetsNo targets recorded. Patient InstructionsNo instructions recorded. Reason for Referral None Reported. Problems Name Problem SNOMED Code Status Onset Date Resolution Date Notes Provider Name and Address Organization Details Recorded Time Seizure 28781276 Active Nicoletracy livingston, [place] - [facility] 10:22:07 Pain of right eye 151737303629695 Active 2023 LLOYD CHAMPION NP [address] [place], [address] [facility] [place] - [facility] 10:43:49 Problem Notes None recorded. Procedures Surgical History Date Name Laterality Status Provider Name and Address Organization Details Recorded Time Fluorescein Eye Exam completed LLOYD CHAMPION NP [address] [place], [address], [place] - [facility] 06/06/2024 10:53:45 Imaging Results None recorded. Procedure Notes None recorded. Medical Equipment None Reported. Allergies No known drug allergies Medications Name Sig Start Date Stop Date Status Note LastModified by Organization Details LastModified Time lamotrigine 200 mg tablet TAKE 1 TABLET BY MOUTH EVERY MORNING AND 1 TABLET BEFORE BED. active Not Available Not Available Not Available ketorolac 0.5 % eye drops INSTILL 1 DROP INTO THE AFFECTED EYE S) BY OPHTHALMIC ROUTE 4 TIMES A DAY. active Not Available Not Available No t Available pyridoxine (vitamin B6) 50 mg tablet TAKE ONE TABLET BY MOUTH EVERY DAY active Not Available Not Available No t Available Lamictal active Not Available Not Avai lable Not Available Vitamin B6 active Not Available Not Av ailable Not Available Vitals Date Recorded Body height Body mass index (BMI) Body weight Pain severity - 0-10 verbal numeric rating [Score] - Reported Body temperature Respiratory rate Oxygen saturation Heart rate Systolic And Diastolic Provider Name and Address Organization Details Last Updated DateTime 4 177.8 cm 22.2 kg/m2 [address].8 2 g 3 97.9 [degF] 16 /min 100 % 74 /min 134/78 mm[Hg] Nicole Cobian [place] - [facility] 4 10:23:34 Social History Question Answer Notes LastModified by Kluster Details LastModified Time Tobacco Smoking Status Never Smoker Nicole livingston [place] - [facility] 06/06/2024 10:22:30 Have You Had A Flu Shot This Season? No Information not available 06/06/2024 If No, Would You Like A Flu Shot Today? No Information not available 06/06/2024 Have You Recently Traveled Abroad? No Information not available 06/06/2024 Sex: Unknown Functional Status Question Answer Note LastModified by Kluster Details LastModified Time Do you use any illicit or recreational drugs? No Information not available 06/06/2024 Do you or have you ever used any other forms of tobacco or nicotine? No Information not available 06/06/2024 What is your level of alcohol consumption? None Information not available 06/06/2024 Mental Status None recorded. Family History Relationship Description Onset Age of this Age Resolved Age Notes LastModified by Organization Details LastModified Time Father No current problems or disability Not available 06/06 10:22:19 Mother No current problems or disability Not available 06/06 10:22:19 Medical History No medical history recorded. Past Encounters Encounter ID Performer Location Encounter Start Date Encounter Closed Date Diagnosis/Indication Diagnosis SNOMED-CT Code Diagnosis ICD10 Code Diagnosis IMO Codes Diagnosis Note [id number] ERNESTO CHANG [address] [place] [address] 06/06/2024 10:16:48 06/06/2024 10:53:17 Pain of right eye 0119061689 [address] H57.11 Health Concerns Section Related Observation LastModified by Organization Detai ls LastModified Time None Recorded Concern Status LastModified by Organization Details LastModified Time None Recorded Advance Directives Directive None Recorded Payers Insurance Date Sequence Insurance Name Policy Number Policy Shultz Covered Member ID Shultz Member ID Guarantor Name 06/28/2024 1 [facility] [id number] Grahamilan Hunterrohit [id number] Grahamilan Sergio Notes Date Note Type Note Provider Name and Address Organization Details Recorded Time 4 text/htm l Eye problemsReported by PatientHPIFor eye symptoms, patient reportsrednessandforeign body sensation. For location, patient reportsright. For severity, patient reportsmild. For onset/timing, patient [email or web address]. For context, patient reportseye trauma. For modifying factors, patient reportsnothing gives relief. For lashell aggravating factors, patient reportslooking downandlooking up. For lashell alleviating factors, patient reportsartificial tears. right eye FB sensationreports some some particles into eye while working on guttersrinsed eyeno vision changes, no vision loss, LLOYD CHAMPION, GRADER TENDER [address] [place], [address], [place] - [facility] 06/06/2024 10:56:12
== END 2025-07-02 10:38 | disposition home or self-care (01) ==
PROVIDERS: PCP Internal Medicine; Visit Provider Urology
DX: N20.0 Calculus of kidney (principal)
CPT/HCPCS: 99213